=== PATIENT | female | born 1960 | race Hispanic/Latino ===

== ENCOUNTER 2017-06-19 15:29 | Emergency (ER) | payer SELFPAY | END 2017-06-19 17:06 | disposition home or self-care (01) | LOC: ERS 15:29 | DX: N63.20 Unspecified lump in the left breast, unspecified quadrant (principal); N63.32 Unspecified lump in axillary tail of the left breast; N64.4 Mastodynia; E03.9 Hypothyroidism, unspecified | CPT/HCPCS: 99283 ==

== ENCOUNTER 2017-08-06 12:25 | Outpatient (CLI) | payer OTHER, SELFPAY ==
[2017-08-06] MEDS ORDERED: ISOVUE-370 76%-LOCM 1 ML ONE (12:47)
== END 2017-08-06 12:26 | disposition home or self-care (01) ==
LOC: BICCT 12:25
PROVIDERS: ATTEND Internal Medicine Hematology & Oncology
DX: C50.412 Malignant neoplasm of upper-outer quadrant of left female breast (principal); K80.20 Calculus of gallbladder without cholecystitis without obstruction
CPT/HCPCS: 71260; 74177

== ENCOUNTER 2017-08-08 12:35 | Outpatient (CLI) | payer OTHER | END 2017-08-08 12:36 | disposition home or self-care (01) | LOC: ULT 12:35 | PROVIDERS: ATTEND Internal Medicine Hematology & Oncology | DX: Z51.11 Encounter for antineoplastic chemotherapy (principal); C50.919 Malignant neoplasm of unspecified site of unspecified female breast; I07.1 Rheumatic tricuspid insufficiency; I37.1 Nonrheumatic pulmonary valve insufficiency; Z79.899 Other long term (current) drug therapy | CPT/HCPCS: 93306 ==

== ENCOUNTER 2017-08-17 08:08 | Day surgery (SDC) | payer SELFPAY ==
[2017-08-14 12:32] VITALS: BMI 30.3
[2017-08-17] MEDS ORDERED: CEFAZOLIN/Water 2 GM/20 ML SYRINGE ONE (10:06)
[2017-08-17] MEDS ORDERED: Lidocaine 2% 10 ML INJ ONE (11:36)
[2017-08-17] MEDS ORDERED: Bupivacaine/Epinephrine 0.25% 30 ML VIAL ONE (11:36)
[2017-08-17] MEDS ORDERED: Propofol 500 MG/50 ML VIAL ONE (11:41)
[2017-08-17] MEDS ORDERED: Midazolam HCl 2 mg/2 ml Vial ONE (11:41)
[2017-08-17] MEDS ORDERED: Fentanyl 100 MCG/2 ML VIAL ONE (11:41)
--- NOTE | 2017-08-17 14:21 | RAD ---
ONE VIEW CHEST: History: Pre-operative exam. Breast cancer. FINDINGS: Portable upright chest radiograph demonstrates a right sided Mediport catheter with the distal tip pr ojecting over the superior vena cava. No pneumothorax. Patchy interstitial opacity in the lung parenc hyma which may represent chronic change. Infiltrate or atelectasis in the left lower lobe cannot be e xcluded. There is no osseous abnormality. IMPRESSION: Left lower lobe opacities as above. POS: SIMON
--- NOTE | 2017-08-17 15:18 | PDOC.OP ---
Operative Note - Operative Note Operative Note: PROCEDURE: Right subclavian MediPort placement with fluoroscopic guidance SURGEON: Dewayne Tejeda M.D. DATE OF PROCEDURE: 08/17/2017 PREOPERATIVE DIAGNOSIS: Breast cancer POSTOPERATIVE DIAGNOSIS: Breast cancer HISTORY: Patient is diagnosed with left breast cancer with severe axillary lymphadenopathy and lymphedema of the left arm. Chemotherapy has been recommended and the oncologist has requested MediPort placement for this. OPERATIVE PROCEDURE IN DETAIL: After informed consent was obtained and appropriate preoperative antibiotics were administered, the patient was taken to the operating room and placed in supine position and monitored anesthesia care was administered. The patient was then placed in Trendelenburg position and the subclavian vein accessed easily on the first attempt with excellent flow of dark venous non-pulsatile blood. A wire threaded easily and was confirmed to be in the superior vena cava by fluoroscopy. Additional local anesthesia was infused to the skin and subcutaneous tissues lateral and inferior to the access site. The skin incision was extended from the wire laterally and a subcutaneous pocket developed inferiorly. A Mediport was obtained and confirmed to fit in the subcutaneous pocket. This was secured inferiorly to the pectoralis fascia with a Prolene suture, which was clamped, but not tied. The dilator and sheath were then placed over the wire and the dilator and wire removed leaving the sheath in place. The clamped MediPort tubing was tunneled through the sheath, which was then split and removed leaving the MediPort tubing in place. The tubing was adjusted until the tip was confirmed by fluoroscopy to be in the superior vena cava just above the atrium. The tubing was clamped at the skin level and cut and the tubing secured to the port, which was then placed in the subcutaneous pocket. The previously placed suture was secured and two additional sutures were placed to fix the port in place within the pocket. The port was aspirated with the Plasencia needle and had excellent flow of dark venous non-pulsatile blood and easily flushed without resistance. The subcutaneous tissues were closed with a running Monocryl suture, following which the skin was closed with a running subcuticular Monocryl suture. Dermabond dressings were placed and the hub was again accessed through the skin and confirmed to easily aspirate and easily flush. The course of the catheter was confirmed by fluoroscopy to be smooth with the tip appropriately located in the superior vena cava. The patient was taken her back to the day stay unit in good condition. Estimated blood loss was minimal. There were no complications. There were no specimens.
== END 2017-08-17 15:00 | disposition home or self-care (01) ==
LOC: SDC 08:08
PROVIDERS: ATTEND Surgery
PROC: 0JH63WZ Insertion of Totally Implantable Vascular Access Device into Chest Subcutaneous Tissue and Fascia, Percutaneous Approach (ICD-10-PCS; principal; 2017-08-17)
DX: C50.919 Malignant neoplasm of unspecified site of unspecified female breast (principal)
CPT/HCPCS: 71045; C1788; J1642; J2250; J2704; J3010

== ENCOUNTER 2017-08-29 09:10 | Day surgery (SDC) | payer SELFPAY ==
[2017-08-29] MEDS ORDERED: Pegfilgrastim 6 MG/0.6 ML Delivery Kit SQ SCH (09:45)
[2017-08-29] MEDS ORDERED: Dexamethasone 10 MG/ML VIAL SLOW IVP SCH (09:45)
[2017-08-29] MEDS ORDERED: PALONOSETRON HCL 0.05 MG/ML 5 ML VIAL IVP SCH (09:45)
[2017-08-29 09:50] VITALS: BP 110/55; TEMP 98.9
[2017-08-29] MEDS ORDERED: DOXORUBICIN 100 MG in Sodium Chloride 0.9% 50 ML IVPB SCH (10:00)
[2017-08-29] MEDS ORDERED: Cyclophosphamide 1 GM in Sodium Chloride 0.9% 250 ML 250 ML IVPB SCH (10:00)
[2017-08-29] MEDS ORDERED: Sodium Chloride 0.9% 40 ML ONE (10:12)
== END 2017-08-29 13:45 | disposition home or self-care (01) ==
LOC: ONC/OP 09:10
PROVIDERS: ATTEND Internal Medicine Hematology & Oncology
DX: Z51.11 Encounter for antineoplastic chemotherapy (principal); C50.412 Malignant neoplasm of upper-outer quadrant of left female breast; E03.9 Hypothyroidism, unspecified; Z98.890 Other specified postprocedural states
CPT/HCPCS: 96366; 96375; 96377; 96413; 96417; A4216; J1100; J1453; J1642; J2469; J2505; J7050; J9000; J9070

== ENCOUNTER 2017-09-12 09:20 | Day surgery (SDC) | payer SELFPAY ==
[2017-09-12] MEDS ORDERED: Sodium Chloride 0.9% 20 ML ONE (09:31)
[2017-09-12] MEDS ORDERED: Pegfilgrastim 6 MG/0.6 ML Delivery Kit SQ SCH (09:45)
[2017-09-12] MEDS ORDERED: Cyclophosphamide 1 GM in Sodium Chloride 0.9% 250 ML 250 ML IVPB SCH (09:45)
[2017-09-12] MEDS ORDERED: DOXORUBICIN 100 MG in Sodium Chloride 0.9% 50 ML IVPB SCH (09:45)
[2017-09-12] MEDS ORDERED: Dexamethasone 10 MG/ML VIAL SLOW IVP SCH (09:45)
[2017-09-12] MEDS ORDERED: PALONOSETRON HCL 0.05 MG/ML 5 ML VIAL IVP SCH (09:45)
[2017-09-12 10:36] VITALS: BP 115/67; TEMP 98.6
== END 2017-09-12 12:52 | disposition home or self-care (01) ==
LOC: ONC/OP 09:20
PROVIDERS: ATTEND Internal Medicine Hematology & Oncology
DX: Z51.11 Encounter for antineoplastic chemotherapy (principal); C50.412 Malignant neoplasm of upper-outer quadrant of left female breast; E03.9 Hypothyroidism, unspecified
CPT/HCPCS: 96367; 96375; 96377; 96413; 96417; A4216; J1100; J1453; J1642; J2469; J2505; J7050; J9000; J9070

== ENCOUNTER 2017-09-26 08:49 | Day surgery (SDC) | payer SELFPAY ==
[2017-09-26] MEDS ORDERED: Sodium Chloride 0.9% 30 ML ONE (08:54)
[2017-09-26] MEDS ORDERED: Cyclophosphamide 1 GM in Sodium Chloride 0.9% 250 ML 250 ML IVPB SCH (09:15)
[2017-09-26] MEDS ORDERED: Dexamethasone 10 MG/ML VIAL SLOW IVP SCH (09:15)
[2017-09-26] MEDS ORDERED: PALONOSETRON HCL 0.05 MG/ML 5 ML VIAL IVP SCH (09:15)
[2017-09-26] MEDS ORDERED: DOXORUBICIN 100 MG in Sodium Chloride 0.9% 50 ML IVPB SCH (09:15)
[2017-09-26] MEDS ORDERED: Pegfilgrastim 6 MG/0.6 ML Delivery Kit SQ SCH (09:15)
[2017-09-26 09:23] VITALS: BP 119/60; TEMP 98.7
== END 2017-09-26 12:07 | disposition home or self-care (01) ==
LOC: ONC/OP 08:49
PROVIDERS: ATTEND Internal Medicine Hematology & Oncology
DX: Z51.11 Encounter for antineoplastic chemotherapy (principal); C50.412 Malignant neoplasm of upper-outer quadrant of left female breast; E03.9 Hypothyroidism, unspecified
CPT/HCPCS: 96367; 96375; 96377; 96413; 96417; A4216; J1100; J1453; J1642; J2469; J2505; J7050; J9000; J9070

== ENCOUNTER 2017-10-10 09:20 | Day surgery (SDC) | payer SELFPAY ==
[2017-10-10] MEDS ORDERED: DOXORUBICIN 100 MG in Sodium Chloride 0.9% 50 ML IVPB SCH (09:45)
[2017-10-10] MEDS ORDERED: Pegfilgrastim 6 MG/0.6 ML Delivery Kit SQ SCH (09:45)
[2017-10-10] MEDS ORDERED: Cyclophosphamide 1 GM in Sodium Chloride 0.9% 250 ML 250 ML IVPB SCH (09:45)
[2017-10-10] MEDS ORDERED: PALONOSETRON HCL 0.05 MG/ML 5 ML VIAL IVP SCH (09:45)
[2017-10-10] MEDS ORDERED: Dexamethasone 10 MG/ML VIAL SLOW IVP SCH (09:45)
[2017-10-10] MEDS ORDERED: Dexamethasone 4 mg/ml Vial SLOW IVP SCH (10:00)
[2017-10-10 11:25] VITALS: BP 124/60; TEMP 98.3
== END 2017-10-10 14:44 | disposition home or self-care (01) ==
LOC: ONC/OP 09:20
PROVIDERS: ATTEND Internal Medicine Hematology & Oncology
DX: Z51.11 Encounter for antineoplastic chemotherapy (principal); C50.412 Malignant neoplasm of upper-outer quadrant of left female breast; E03.9 Hypothyroidism, unspecified; Z79.899 Other long term (current) drug therapy
CPT/HCPCS: 96367; 96375; 96377; 96413; 96417; J1100; J1453; J2469; J2505; J7050; J9000; J9070

== ENCOUNTER 2017-10-31 13:38 | Day surgery (SDC) | payer SELFPAY ==
[2017-10-31] MEDS ORDERED: PACLitaxel 140 MG in Sodium Chloride 0.9% 250 ML 250 ML IVPB SCH (14:00)
[2017-10-31] MEDS ORDERED: Dexamethasone 10 MG, Admixture Fee 1 EACH in Sodium Chloride 0.9% 50 ML IVPB SCH (14:00)
[2017-10-31] MEDS ORDERED: Sodium Chloride 0.9% 30 ML ONE (15:28)
[2017-10-31 15:48] VITALS: BP 133/63; TEMP 98.1
== END 2017-10-31 16:33 | disposition home or self-care (01) ==
LOC: ONC/OP 13:38
PROVIDERS: ATTEND Internal Medicine Hematology & Oncology
DX: Z51.11 Encounter for antineoplastic chemotherapy (principal); C50.412 Malignant neoplasm of upper-outer quadrant of left female breast; E03.9 Hypothyroidism, unspecified; Z79.899 Other long term (current) drug therapy
CPT/HCPCS: 96375; 96413; A4216; J1100; J7050; J9267

== ENCOUNTER 2017-11-07 13:51 | Day surgery (SDC) | payer SELFPAY ==
[2017-11-07] MEDS ORDERED: Sodium Chloride 0.9% 20 ML ONE (14:01)
[2017-11-07] MEDS ORDERED: PACLitaxel 140 MG in Sodium Chloride 0.9% 250 ML 250 ML IVPB SCH (14:15)
[2017-11-07] MEDS ORDERED: Dexamethasone 10 MG in Sodium Chloride 0.9% 50 ML IVPB SCH (14:15)
[2017-11-07 14:19] VITALS: BP 122/60; TEMP 98.1
== END 2017-11-07 15:50 | disposition home or self-care (01) ==
LOC: ONC/OP 13:51
PROVIDERS: ATTEND Internal Medicine Hematology & Oncology
DX: Z51.11 Encounter for antineoplastic chemotherapy (principal); C50.412 Malignant neoplasm of upper-outer quadrant of left female breast; E03.9 Hypothyroidism, unspecified; Z17.1 Estrogen receptor negative status [ER-]
CPT/HCPCS: 96375; 96413; A4216; J1100; J1642; J7050; J9267

== ENCOUNTER 2017-11-14 13:50 | Day surgery (SDC) | payer SELFPAY ==
[2017-11-14] MEDS ORDERED: Sodium Chloride 0.9% 20 ML ONE (14:07)
[2017-11-14 14:21] VITALS: BP 111/55; TEMP 98.2
[2017-11-14] MEDS ORDERED: PACLitaxel 140 MG in Sodium Chloride 0.9% 250 ML 250 ML IVPB SCH (15:00)
== END 2017-11-14 16:38 | disposition home or self-care (01) ==
LOC: ONC/OP 13:50
PROVIDERS: ATTEND Internal Medicine Hematology & Oncology
DX: Z51.11 Encounter for antineoplastic chemotherapy (principal); C50.412 Malignant neoplasm of upper-outer quadrant of left female breast; E03.9 Hypothyroidism, unspecified; Z79.899 Other long term (current) drug therapy
CPT/HCPCS: 96375; 96413; A4216; J1642; J7050; J9267

== ENCOUNTER 2017-11-21 13:34 | Day surgery (SDC) | payer OTHER, SELFPAY ==
[2017-11-21] MEDS ORDERED: Sodium Chloride 0.9% 30 ML ONE (13:58)
[2017-11-21] MEDS ORDERED: Dexamethasone Sod Phosphate 4 MG in Sodium Chloride 0.9% 50 ML IVPB SCH (14:15)
[2017-11-21 14:23] VITALS: BP 123/67; TEMP 98.6
[2017-11-21] MEDS ORDERED: PACLitaxel 140 MG in Sodium Chloride 0.9% 250 ML 250 ML IVPB SCH (14:45)
[2017-11-21] MEDS ORDERED: Dexamethasone 4 MG in Sodium Chloride 0.9% 50 ML SLOW IVP SCH (14:45)
== END 2017-11-21 16:06 | disposition home or self-care (01) ==
LOC: ONC/OP 13:34
PROVIDERS: ATTEND Internal Medicine Hematology & Oncology
DX: Z51.11 Encounter for antineoplastic chemotherapy (principal); C50.412 Malignant neoplasm of upper-outer quadrant of left female breast; E03.9 Hypothyroidism, unspecified; Z79.899 Other long term (current) drug therapy
CPT/HCPCS: 96375; 96413; A4216; J1100; J1642; J7050; J9267

== ENCOUNTER 2017-11-28 13:25 | Day surgery (SDC) | payer SELFPAY ==
[2017-11-28] MEDS ORDERED: Sodium Chloride 0.9% 20 ML ONE (13:29)
[2017-11-28 13:37] VITALS: BP 119/56; TEMP 97.9
[2017-11-28] MEDS ORDERED: Dexamethasone 4 mg/ml Vial SLOW IVP SCH (13:45)
[2017-11-28] MEDS ORDERED: PACLitaxel 140 MG in Sodium Chloride 0.9% 250 ML 250 ML IVPB SCH (14:00)
== END 2017-11-28 16:22 | disposition home or self-care (01) ==
LOC: ONC/OP 13:25
PROVIDERS: ATTEND Internal Medicine Hematology & Oncology
DX: Z51.11 Encounter for antineoplastic chemotherapy (principal); C50.412 Malignant neoplasm of upper-outer quadrant of left female breast; E03.9 Hypothyroidism, unspecified; Z79.899 Other long term (current) drug therapy
CPT/HCPCS: 96375; 96413; J1100; J1642; J7050; J9267

== ENCOUNTER 2017-12-05 13:35 | Day surgery (SDC) | payer OTHER ==
[2017-12-05] MEDS ORDERED: Sodium Chloride 0.9% 30 ML ONE (13:44)
[2017-12-05] MEDS ORDERED: PACLitaxel 140 MG in Sodium Chloride 0.9% 250 ML 250 ML IVPB SCH (13:45)
[2017-12-05] MEDS ORDERED: Dexamethasone 4 mg/ml Vial SLOW IVP SCH (13:45)
[2017-12-05 14:27] VITALS: BP 113/68; TEMP 98.6
== END 2017-12-05 16:20 | disposition home or self-care (01) ==
LOC: ONC/OP 13:35
PROVIDERS: ATTEND Internal Medicine Hematology & Oncology
DX: Z51.11 Encounter for antineoplastic chemotherapy (principal); C50.412 Malignant neoplasm of upper-outer quadrant of left female breast; E03.9 Hypothyroidism, unspecified; Z79.899 Other long term (current) drug therapy
CPT/HCPCS: 96375; 96413; J1100; J1642; J7050; J9267

== ENCOUNTER → 2017-12-12 | Day surgery (SDC) | payer OTHER ==
[~2017-12-12] MED LIST: Dexamethasone 4 mg/ml Vial SLOW IVP SCH; PACLitaxel 140 MG in Sodium Chloride 0.9% 250 ML 250 ML IVPB SCH; Sodium Chloride 0.9% 20 ML ONE
[2017-12-12 14:58] VITALS: BP 127/60; TEMP 98.7
--- NOTE | 2017-12-12 16:48 | ULT ---
LEFT LOWER EXTREMITY VENOUS DUPLEX ULTRASOUND INCLUDING COLOR AND SPECTRAL DOPPLER IMAGING: Date: 12/12/17 HISTORY: 57-year-old female with history of malignant neoplasm of upper outer quadrant of left female breast. TECHNIQUE: Exam performed from groin to ankle including visualized greater saphenous, common femoral, superficia l femoral, profunda femoral, popliteal, trifurcation, and posterior tibial vein. FINDINGS: Phasic flow noted at all levels with normal compressibility and normal augmentation. No intraluminal thrombus. IMPRESSION: No evidence for deep venous thrombosis. POS: TPC
== END ==
LOC: ONC/OP 12:52
PROVIDERS: ATTEND Internal Medicine Hematology & Oncology
DX: Z51.11 Encounter for antineoplastic chemotherapy (principal); C50.412 Malignant neoplasm of upper-outer quadrant of left female breast; E03.9 Hypothyroidism, unspecified
CPT/HCPCS: 90471; 96375; 96413; J1100; J1642; J7050; J9267

== ENCOUNTER 2017-12-19 12:06 | Day surgery (SDC) | payer OTHER ==
[2017-12-19] MEDS ORDERED: Dexamethasone 4 mg/ml Vial SLOW IVP SCH (12:15)
[2017-12-19] MEDS ORDERED: Sodium Chloride 0.9% 20 ML ONE (12:19)
[2017-12-19] MEDS ORDERED: PACLitaxel 140 MG in Sodium Chloride 0.9% 250 ML 250 ML IVPB SCH (12:30)
[2017-12-19 12:36] VITALS: BP 114/57; TEMP 98.7
== END 2017-12-19 14:13 | disposition home or self-care (01) ==
LOC: ONC/OP 12:06
PROVIDERS: ATTEND Internal Medicine Hematology & Oncology
DX: Z51.11 Encounter for antineoplastic chemotherapy (principal); C50.412 Malignant neoplasm of upper-outer quadrant of left female breast
CPT/HCPCS: 96375; 96413; J1100; J1642; J7050; J9267

== ENCOUNTER 2017-12-26 11:38 | Day surgery (SDC) | payer OTHER ==
[2017-12-26] MEDS ORDERED: Sodium Chloride 0.9% 20 ML ONE (11:47)
[2017-12-26] MEDS ORDERED: Dexamethasone 4 mg/ml Vial SLOW IVP SCH (12:00)
[2017-12-26] MEDS ORDERED: PACLitaxel 140 MG in Sodium Chloride 0.9% 250 ML 250 ML IVPB SCH (12:00)
[2017-12-26 13:13] VITALS: BP 125/58; TEMP 98.2
== END 2017-12-26 13:45 | disposition home or self-care (01) ==
LOC: ONC/OP 11:38
PROVIDERS: ATTEND Internal Medicine Hematology & Oncology
DX: Z51.11 Encounter for antineoplastic chemotherapy (principal); C50.412 Malignant neoplasm of upper-outer quadrant of left female breast; E03.9 Hypothyroidism, unspecified; Z79.899 Other long term (current) drug therapy
CPT/HCPCS: 96375; 96413; J1100; J1642; J7050; J9267

== ENCOUNTER 2018-01-02 12:25 | Day surgery (SDC) | payer SELFPAY, OTHER ==
[2018-01-02] MEDS ORDERED: PACLitaxel 140 MG in Sodium Chloride 0.9% 250 ML 250 ML IVPB SCH (12:45)
[2018-01-02] MEDS ORDERED: Dexamethasone 4 mg/ml Vial SLOW IVP SCH (12:45)
[2018-01-02] MEDS ORDERED: Sodium Chloride 0.9% 30 ML ONE (12:56)
[2018-01-02 13:12] VITALS: BP 129/61; TEMP 98
== END 2018-01-02 15:20 | disposition home or self-care (01) ==
LOC: ONC/OP 12:25
PROVIDERS: ATTEND Internal Medicine Hematology & Oncology
DX: Z51.11 Encounter for antineoplastic chemotherapy (principal); C50.412 Malignant neoplasm of upper-outer quadrant of left female breast; E03.9 Hypothyroidism, unspecified; Z79.899 Other long term (current) drug therapy
CPT/HCPCS: 96375; 96413; J1100; J1642; J7050; J9267

== ENCOUNTER 2018-01-09 14:24 | Day surgery (SDC) | payer OTHER ==
[2018-01-09] MEDS ORDERED: PACLitaxel 140 MG in Sodium Chloride 0.9% 250 ML 250 ML IVPB SCH (14:45)
[2018-01-09] MEDS ORDERED: Dexamethasone 4 mg/ml Vial SLOW IVP SCH (14:45)
[2018-01-09] MEDS ORDERED: Sodium Chloride 0.9% 20 ML ONE (15:04)
== END 2018-01-09 17:40 | disposition home or self-care (01) ==
LOC: ONC/OP 14:24
PROVIDERS: ATTEND Internal Medicine Hematology & Oncology
DX: Z51.11 Encounter for antineoplastic chemotherapy (principal); C50.412 Malignant neoplasm of upper-outer quadrant of left female breast; E03.9 Hypothyroidism, unspecified
CPT/HCPCS: 96375; 96413; J1100; J1642; J7050; J9267

== ENCOUNTER 2018-01-16 12:19 | Day surgery (SDC) | payer OTHER ==
[2018-01-16] MEDS ORDERED: Sodium Chloride 0.9% 30 ML ONE (12:27)
[2018-01-16] MEDS ORDERED: PACLitaxel 140 MG in Sodium Chloride 0.9% 250 ML 250 ML IVPB SCH (12:45)
[2018-01-16] MEDS ORDERED: Dexamethasone 4 MG in Sodium Chloride 0.9% 50 ML IVPB SCH (12:45)
[2018-01-16 13:08] VITALS: BP 127/58; TEMP 99.2
== END 2018-01-16 15:28 | disposition home or self-care (01) ==
LOC: ONC/OP 12:19
PROVIDERS: ATTEND Internal Medicine Hematology & Oncology
DX: Z51.11 Encounter for antineoplastic chemotherapy (principal); C50.412 Malignant neoplasm of upper-outer quadrant of left female breast; E03.9 Hypothyroidism, unspecified; Z17.1 Estrogen receptor negative status [ER-]
CPT/HCPCS: 96375; 96413; J1100; J1642; J7050; J9267

== ENCOUNTER 2018-01-28 10:51 | Observation (INO) | payer SELFPAY ==
[2018-01-28 12:17] LABS: Hemoglobin 12.7 g/dL (12.0-16.0); Mean Corpuscular HGB CONC 33.1 g/dL (32.0-36.0); Mean Corpuscular Volume 96.5 fL (78.0-98.0); Mean Platelet Volume 6.2 fL (7.4-10.4); Platelet Count 291 thou/uL (130-400); RBC Distribution Width 12.2 % (11.5-14.5); Red Blood Cell (RBC) Count 3.96 mill/uL (4.20-5.40); White Blood Cell (WBC) Count 3.4 thou/uL (4.8-10.8)
[2018-01-28 12:41] LABS: Band 5 % (5-11); Lymphocytes 43 % (21-51); MDiff Complete? YES; Monocytes 12 % (0-10); Neutrophil 38 % (42-75); PLT Morphology Comment Appears Adequate; Reactive Lymphocytes 2 % (0-10)
[2018-01-28 12:45] LABS: Anion Gap 14 mmol/L (10-20); BUN (Urea Nitrogen) 13 mg/dL (9.8-20.1); Calc. Creatinine Clearance 98 mL/min (70-130); Calcium 9.5 mg/dL (7.8-10.44); Carbon Dioxide 24 mmol/L (22-29); Chloride 108 mmol/L (98-107); Estimated GFR-MDRD 75; Glucose 94 mg/dL (70-105); Potassium 4.5 mmol/L (3.5-5.1); Sodium 141 mmol/L (136-145)
[2018-01-28] MEDS ORDERED: CEFAZOLIN 2 GM/50 ML BAG ONE (12:58)
[2018-01-28] MEDS ORDERED: HYDROmorphone 2 MG/ML VIAL ONE ×2 (13:58→14:33)
[2018-01-28] MEDS ORDERED: Fentanyl 100 MCG/2 ML VIAL ONE ×2 (13:58→20:06)
[2018-01-28] MEDS ORDERED: Promethazine HCl 25 MG/ML VIAL SLOW IVP PRN (19:20)
[2018-01-28] MEDS ORDERED: HYDROmorphone 2 MG/ML VIAL SLOW IVP PRN (19:20)
[2018-01-28] MEDS ORDERED: Promethazine HCl 25 MG/ML VIAL IM PRN (19:20)
[2018-01-28] MEDS ORDERED: Ondansetron HCl/PF 4 MG/2 ML Vial IVP PRN (19:20)
[2018-01-28] MEDS ORDERED: HYDROcodone/Acetaminophen 5/325 mg Tablet PO PRN ×2 (19:59)
[2018-01-28] MEDS ORDERED: Acetaminophen 325 MG TAB PO PRN ×2 (20:00)
[2018-01-28] MEDS ORDERED: Ibuprofen 600 MG TAB PO PRN (20:02)
[2018-01-28] MEDS ORDERED: traMADol HCl 50 MG TAB PO PRN ×2 (20:03→20:04)
[2018-01-28] MEDS ORDERED: PROPOFOL 200 MG/20 ML VIAL ONE (20:05)
[2018-01-28] MEDS ORDERED: Dexamethasone 20 MG/5 ML VIAL ONE (20:05)
[2018-01-28] MEDS ORDERED: Ondansetron PF 4 MG/2 ML Vial ONE (20:05)
[2018-01-28] MEDS ORDERED: Ketorolac Tromethamine 30 MG/ML VIAL ONE (20:05)
[2018-01-28] MEDS ORDERED: Metoclopramide HCl 10 MG/2 ML VIAL ONE (20:05)
[2018-01-28] MEDS ORDERED: Glycopyrrolate 0.2 MG/ML 5 ML SYRINGE ONE (20:05)
[2018-01-28] MEDS ORDERED: ePHEDrine/0.9% NaCl/PF SYRINGE 50 mg/10 ml ONE (20:05)
[2018-01-28] MEDS ORDERED: Lidocaine 1% PF 5 ML VIAL ONE (20:05)
[2018-01-29 08:39] VITALS: BP 98/60; TEMP 98.5
--- NOTE | 2018-02-01 13:28 | PDOC.OP ---
Operative Note - Operative Note Operative Note: PROCEDURE: Right simple mastectomy and left modified radical mastectomy DATE OF PROCEDURE: 01/28/2018 SURGEON: Dewayne Tejeda M.D. PREOPERATIVE DIAGNOSES: Left breast cancer POSTOPERATIVE DIAGNOSIS: Left breast cancer HISTORY: Patient with locally advanced left breast cancer with involvement of multiple axillary lymph nodes has undergone neoadjuvant chemotherapy with partial response. She has decided to proceed with bilateral mastectomy. She still has palpable axillary lymph nodes so left modified radical mastectomy was recommended. She also has palpable supraclavicular lymph nodes but only one of these a surgically accessible so after discussion with her oncologist the decision was made not to address this surgically. It will be in the postoperative radiation therapy field. PROCEDURE IN DETAIL: After informed consent was obtained and preoperative antibiotics administered, the patient was taken to the operating room she was placed in supine position and general anesthesia was administered. The patient was then prepped and draped in the standard sterile fashion and right simple mastectomy performed. An elliptical incision including the nipple areolar complex was created and flaps raised superiorly to the level of the clavicle, inferiorly to the level of the rectus sheath and medially to the level of the sternum. The breast tissue was then dissected free of the pectoralis in a medial to lateral fashion and marked for orientation with a long lateral and short superior suture. The wound was irrigated and hemostasis obtained using Bovie electrocautery. A GISELLA drain was placed laterally and secured to the skin. The subcutaneous tissues and deep dermis were reapproximated with interrupted [id number] Vicryl sutures and the skin was closed with skin la. Attention was then turned to the left modified radical mastectomy. A transverse elliptical incision was made and flaps created by dividing Jarek s ligaments. Dissection was carried down to the rectus sheath inferiorly, the sternal edge medially, and the clavicle superiorly. The breast tissue and pectoralis fascia were then elevated and dissected free laterally to the edge of the pectoralis muscle. This was done with moderate difficulty as there appeared to be a large amount of fibrosis between the pectoralis fascia and the pectoralis. However there was no direct extension of the tumor into the pectoralis. The true axilla was entered superiorly and dissection carried down to the axillary vein. The axillary contents were then swept off of the chest wall and the long thoracic nerve identified and confirmed to cause contraction of the muscles. Dissection in this area was also difficult because of fibrosis of unclear etiology. Multiple intercostal brachial nerves were divided as they were coursing directly through the breast tissue. The thoracodorsal vein and nerve were identified coming off of the axillary vein laterally and traced to their insertion in the latissimus dorsi. The nerve was confirmed to cause contraction of this muscle. The lymph node bearing tissue between these 3 structures was then resected in continuity with the breast tissue using clips to divide small lymphatics and vessels. Multiple enlarged lymph nodes were palpable within the axillary contents, and dissection was carried out all the way to the level III lymph nodes medial to the pectoralis minor muscle. The specimen was marked with a long lateral and short superior suture and passed from the field. The wound was irrigated and hemostasis verified. On palpation and examination of the axilla, no other abnormal lymph nodes were noted except for one palpable firm lymph node or mass which appeared to be fixed deep and superior to the medial edge of the pectoralis minor. It was felt that this likely represented one of the supraclavicular lymph nodes which have been noted adjacent to the subclavian vein on ultrasound preoperatively. This was not accessible surgically. Two GISELLA drains were placed to the chest wall and to the axilla and secured to the skin. The incision was closed with deep dermal 3-0 Vicryl sutures and the skin closed with la. The incision was dressed with Xeroform and Tegaderm and the GISELLA sites dressed with drain sponges and Tegaderm. Compression dressings and an Khadar wrap were placed. Estimated blood loss was minimal. There were no complications. SPECIMENS: Right breast, and left breast and axillary contents.
== END 2018-01-29 11:26 | disposition home or self-care (01) ==
LOC: SDC 10:51 → SURG A 19:52
PROVIDERS: ADMIT Surgery; ATTEND Surgery
PROC: 0HTT0ZZ Resection of Right Breast, Open Approach (ICD-10-PCS; principal; 2018-01-28)
PROC: 0HBU0ZZ Excision of Left Breast, Open Approach (ICD-10-PCS; 2018-01-28)
DX: C50.912 Malignant neoplasm of unspecified site of left female breast (principal); N60.11 Diffuse cystic mastopathy of right breast; F41.9 Anxiety disorder, unspecified; Z98.890 Other specified postprocedural states
CPT/HCPCS: 36415; 80048; 85025; 88307; 88309; 96374; G0378; J1100; J1170; J1885; J2001; J2405; J2704; J2765; J3010

== ENCOUNTER 2018-02-16 11:24 | Inpatient (IN) | payer OTHER, SELFPAY ==
[2018-02-16 12:15] LABS: #Eosinphils 0.1 thou/uL (0.0-0.7); #Lymphocytes 0.7 thou/uL (1.20-3.40); #Monocytes 0.7 thou/uL (0.11-0.59); #Neutrophils 6.8 thou/uL (1.40-6.50); %Eosinophils 0.8 % (0.0-10.0); %Lymphocytes 8.7 % (21.0-51.0); %Neutrophils 82.6 % (42.0-75.0); Hemoglobin 12.3 g/dL (12.0-16.0); Mean Corpuscular HGB CONC 34.1 g/dL (32.0-36.0); Mean Corpuscular Hemoglobin 32.6 pg (27.0-31.0); Mean Corpuscular Volume 95.8 fL (78.0-98.0); Mean Platelet Volume 7.1 fL (7.4-10.4); Platelet Count 355 thou/uL (130-400); RBC Distribution Width 12.9 % (11.5-14.5); Red Blood Cell (RBC) Count 3.76 mill/uL (4.20-5.40); White Blood Cell (WBC) Count 8.3 thou/uL (4.8-10.8)
[2018-02-16 12:27] LABS: ALT (SGPT) 20 U/L (8-55); AST (SGOT) 23 U/L (5-34); Albumin 3.7 g/dL (3.5-5.0); Alkaline Phosphatase 100 U/L (40-150); Anion Gap 20 mmol/L (10-20); BUN (Urea Nitrogen) 11 mg/dL (9.8-20.1); Bilirubin, Total 0.3 mg/dL (0.2-1.2); Calc. Creatinine Clearance 0 mL/min (70-130); Calcium 9.5 mg/dL (7.8-10.44); Carbon Dioxide 16 mmol/L (22-29); Chloride 99 mmol/L (98-107); Estimated GFR-MDRD 64; Globulin 4.2 g/dL (2.4-3.5); Glucose 141 mg/dL (70-105); Potassium 4.4 mmol/L (3.5-5.1); Protein, Total 7.9 g/dL (6.0-8.3); Sodium 131 mmol/L (136-145)
[2018-02-16] MEDS ORDERED: Ondansetron PF 4 MG/2 ML Vial ONE (14:47)
[2018-02-16] MEDS ORDERED: Morphine 4 MG/ML VIAL ONE (14:47)
[2018-02-16 15:29] LABS: Bilirubin Small (Negative); Blood, Urine Trace (Negative); Clarity CLEAR (Clear); Glucose, Urine (Dipstick) Negative (Negative); Leukocyte Small (Negative); Nitrite Negative (Negative); Protein, Urine (Dipstick) Negative (Neg-Trace); Specific Gravity, Urine 1.029 (1.002-1.036)
[2018-02-16 15:31] LABS: Bacteria/HPF None Seen HPF (None Seen); Hyaline Casts/LPF 0-3 HYALINE CAST LPF (0-3 Hyaline); Pathc Cast-AUWi Flag 0.29 (0-2.49)
[2018-02-16 15:53] LABS: Lactic Acid 1.3 mmol/L (0.5-2.2)
--- NOTE | 2018-02-16 15:57 | RAD ---
CHEST ONE VIEW: 02/16/18 HISTORY: Sepsis. COMPARISON: Chest radiograph 08/17/17. FINDINGS: There is small left effusion. Mild left basilar atelectasis. Multiple surgical clips left axilla. At the inferior margin of the left axillary clips, there is what appears to be a surgical wick drain. IMPRESSION: 1. Left basilar opacity, likely atelectasis with a small effusion. 2. At the inferior margin of the left axillary surgical clips is what appears to be a surgical w ick type drain. Clinical correlation is advised. POS: SIMON
[2018-02-16] MEDS ORDERED: Piperacillin/Tazobactam 4.5 GM VIAL ONE (16:01)
[2018-02-16] MEDS ORDERED: Clindamycin/D5W 900 mg/50 ml Premix Bag ONE (16:41)
[2018-02-16] MEDS ORDERED: Iopamidol 370 76% 100 ML VIAL ONE (17:09)
[2018-02-16] MEDS ORDERED: Vancomycin HCl 1 GM in Premix Bag 1 BAG IVPB SCH (18:15)
--- NOTE | 2018-02-16 20:25 | CT ---
CTA CHEST WITH CONTRAST AND 3D VOLUME RENDERING 02/16/18 INDICATION: History of wound infection. Recent bilateral mastectomy, fever. FINDINGS: No evidence of a significant filling defect of the pulmonary trunk or main pulmonary arteries. There is bilateral multifocal parenchymal consolidation containing air bronchograms. There is mild left ple ural fluid. No pneumothorax. There is heterogeneous density of the ventral chest wall bilaterally wi th skin thickening, increased subcutaneous density and several scattered locules of dermal air. Thora cic aorta is nonaneurysmal. Multiple metallic clips are present of the left axilla and along the left chest wall, laterally. IMPRESSION: 1. No large, central pulmonary embolus. 2. Multifocal bilateral consolidation with air bronchograms indicative of pneumonia. 3. Mild left pleural effusion. 4. Heterogeneous density of the ventral chest wall with interspersed air locules. The patient kendrick s a reported recent mastectomy. This may therefore relate to postsurgical changes. Although clinical correlation is necessary to exclude superimposed infection. POS: SIMON
[2018-02-16 20:46] LABS: CK (CPK) 38 U/L (29-168); Lipase 14 U/L (8-78)
[2018-02-16 20:50] LABS: CKMB 0.9 ng/mL (0-6.6)
[2018-02-16] MEDS ORDERED: Acetaminophen 500 MG TAB ONE (21:30)
[2018-02-16] MEDS ORDERED: Norepinephrine 8 MG/0.9% NS 250 ML ONE (23:31)
[2018-02-17] MEDS ORDERED: Guaifenesin DM 100-10/5 ML UDCUP PO PRN (01:31)
[2018-02-17] MEDS ORDERED: Senokot S 8.6-50 MG TAB PO PRN (01:31)
[2018-02-17] MEDS ORDERED: Norepinephrine 8 MG/0.9% NS 250 ML IVPB PRN (01:31)
[2018-02-17] MEDS ORDERED: Sodium Chloride 0.9% 1,000 ML IV SCH (01:31)
[2018-02-17] MEDS ORDERED: Acetaminophen 325 MG TAB PO PRN (01:31)
[2018-02-17 02:15] LABS: #Basophils 0.1 thou/uL (0.0-0.2); #Eosinphils 0.1 thou/uL (0.0-0.7); #Lymphocytes 1.3 thou/uL (1.20-3.40); #Monocytes 0.8 thou/uL (0.11-0.59); #Neutrophils 4.3 thou/uL (1.40-6.50); %Basophils 0.8 % (0.0-1.0); %Eosinophils 0.8 % (0.0-10.0); %Lymphocytes 19.6 % (21.0-51.0); %Neutrophils 66.7 % (42.0-75.0); Hemoglobin 9.8 g/dL (12.0-16.0); Mean Corpuscular HGB CONC 34.4 g/dL (32.0-36.0); Mean Corpuscular Hemoglobin 33.1 pg (27.0-31.0); Mean Corpuscular Volume 96.2 fL (78.0-98.0); Mean Platelet Volume 6.5 fL (7.4-10.4); Platelet Count 317 thou/uL (130-400); RBC Distribution Width 12.8 % (11.5-14.5); Red Blood Cell (RBC) Count 2.95 mill/uL (4.20-5.40); White Blood Cell (WBC) Count 6.4 thou/uL (4.8-10.8)
[2018-02-17] MEDS ORDERED: Piperacillin/Tazobactam 4.5 GM VIAL ONE (02:18)
--- NOTE | 2018-02-17 02:30 | HP ---
REASON FOR ADMISSION: Septic shock, post mastectomy wound site infection, possible pneumonia, demand ischemia, and metabolic acidosis. HISTORY OF PRESENTING ILLNESS: The patient has history of breast cancer and had bilateral mastectomy done. She in fact had left breast modified radical mastectomy with histopathology revealing invasive ductal carcinoma, triple negative for markers. She also had 12/16 lymph nodes being positive. She had her la removed on . She had a followup on 02/13 with her surgeon and had a left tube drain placed. She went again on the and saw Dr. Tejeda. The left drainage tube was kinked and she had to cut it short and dressing changes were made. This morning, the patient had drainage seen on the right side, which was yellowish, watery drainage. She tried calling the surgical hotline, but could not reach anyone at the other end. She finally made it to the emergency room. She has had a temperature of 99.8 degrees at home and 99.6 degrees here. No cough or expectoration. No urinary frequency or urgency. The patient had chemotherapy given on the to shrink her left breast mass and had surgery on 01/28. PAST MEDICAL HISTORY: Hypothyroidism; left breast invasive ductal carcinoma, which is triple negative and has 12/16 positive lymph nodes. She had simple mastectomy of the right breast as well. CURRENT MEDICATIONS: The patient was started on Bactrim and Cipro from last 2 days, ultram p.r.n. for pain. ALLERGIES: NO KNOWN DRUG ALLERGIES. PERSONAL HISTORY: Does not abuse alcohol or drugs. No history of smoking. She lives with her for 2 years. FAMILY HISTORY: Mother at the age of 35 years due to delivery complications. Father in his 70s, he has had history of OR. Two sisters have had history of ovarian cancer and one from it. The other two sisters are healthy. She has no brothers. The patient ambulates by herself without any assistive devices. Code status is full. Power of paperhanger is her . REVIEW OF SYSTEMS: CONSTITUTIONAL: Negative for weight loss or gain, ability to conduct usual activities. SKIN: Negative for rash, itching. EYES: Negative for double vision, pain. ENT/MOUTH: Negative for nose bleeding, neck stiffness, pain, tenderness. CARDIOVASCULAR: Negative for palpitations, dyspnea on exertion, orthopnea. RESPIRATORY: Negative for shortness of breath, wheezing, cough, hemoptysis, fever or night sweats. GASTROINTESTINAL: Negative for poor appetite, abdominal pain, heartburn, nausea , vomiting, constipation, or diarrhea. GENITOURINARY: Negative for urgency, frequency, dysuria, nocturia. MUSCULOSKELETAL: Negative for pain, swelling. NEUROLOGIC/PSYCHIATRIC: Negative for anxiety, depression. ALLERGY/IMMUNOLOGIC: Negative for skin rash, bleeding tendency. PHYSICAL EXAMINATION: GENERAL: The patient is a 57-year-old female who is currently not in any acute distress. VITAL SIGNS: On arrival, blood pressure 110/45, dropped down to the 70s systolic and had to be given 2 L bolus. This came up to 100 systolic, but then again dropped and had to be started on Levophed drip. Respiratory rate 16, pulse 106 per minute, temperature 99.6 degrees Fahrenheit, and saturating 98% on room air. NECK: Supple. No elevated JVD. HEENT: Eyes, extraocular muscles intact. Pupils reacting to light. Oral cavity, mucous membranes are dry. No exudates or congestion. CARDIOVASCULAR SYSTEM: S1 and S2 heard. Regular rhythm. RESPIRATORY SYSTEM: Air entry 1+ bilateral. No rales or rhonchi. ABDOMEN: Soft. Bowel sounds heard. No tenderness, rigidity, or guarding. EXTREMITIES: Mild peripheral edema in the lower extremities and no calf tenderness. VASCULAR SYSTEM: 1+ bilateral. No ischemic ulcerations or gangrene. CENTRAL NERVOUS SYSTEM: No gross focal deficits noted. The patient is alert, awake, and oriented well. PSYCHIATRIC SYSTEM: The patient's mood is euthymic. No hallucinations or delusions. BREAST EXAMINATION: In the right breast, there is serosanguineous discharge with some purulence seen in the right mastectomy surgical site. The patient has drainage in the left breast mastectomy site as well. This is covered in a dressing, which is not open at present. Cultures have been obtained from the site. LABORATORY DATA: CT angio chest done showed no large central pulmonary embolus. There is multifocal pneumonia, mild left pleural effusion. White count of 8.3, hemoglobin and hematocrit 12 and 36, platelet count 355 with 82% neutrophils, MCV is 95. Sodium 131, serum bicarb 16, BUN 11, creatinine 0.9, serum glucose 141, and lactic acid 2.4. Liver enzymes are within normal limits. Albumin is 3.7. BNP 70. Troponin I 0.03, CK-MB 0.9. UA shows small leukocyte esterase with 4 to 6 wbc's with no bacteria seen. Preliminary Gram stain from right breast shows few gram positive cocci in clusters, moderate WBC seen. EKG done shows normal sinus rhythm at 86 beats per minute. There are nonspecific ST-T wave changes, questionable Q-wave seen in lead III, aVF. CLINICAL IMPRESSION AND PLAN: The patient will be admitted to ICU for septic shock, likely post mastectomy site infection. Blood and wound cultures have been obtained. We will obtain sputum and urine cultures as well. She will be placed on broad-spectrum antibiotics including cefepime, Levaquin, and vancomycin. This can be rapidly tapered based on cultures. She has received only 2 L of bolus in the ER and will give two more L of bolus and she will be on lactated Ringer's 100 mL per hour thereafter. If needed, we will use Levophed. A cortisol level stat will be obtained. We will consult Dr. Tejeda for General Surgery and Dr. Segura for Critical Care. If the patient's systolic blood pressure holds good and is not needing pressors, she will be transferred down to telemetry or oncology unit. We will continue to closely monitor her. The patient's breast cancer is triple negative (estrogen, progesterone, and HER2/jerrod all three of them are negative plus the patient has 12/15 lymph nodes being positive). Job ID: [id number] [facility]
[2018-02-17] MEDS ORDERED: Cefepime 1 GM in Sodium Chloride 0.9% 100 ML IVPB SCH (03:00)
[2018-02-17 03:03] LABS: ALT (SGPT) 14 U/L (8-55); AST (SGOT) 14 U/L (5-34); Albumin 2.8 g/dL (3.5-5.0); Alkaline Phosphatase 82 U/L (40-150); Anion Gap 11 mmol/L (10-20); BUN (Urea Nitrogen) 8 mg/dL (9.8-20.1); Bilirubin, Total Less than 0.2 mg/dL (0.2-1.2); CRP (Inflammatory) 11.28 mg/dL (= or < 0.5); Calc. Creatinine Clearance 0 mL/min (70-130); Calcium 8.3 mg/dL (7.8-10.44); Carbon Dioxide 20 mmol/L (22-29); Chloride 112 mmol/L (98-107); Estimated GFR-MDRD 82; Glucose 97 mg/dL (70-105); Potassium 3.7 mmol/L (3.5-5.1); Protein, Total 5.8 g/dL (6.0-8.3); Sodium 139 mmol/L (136-145)
[2018-02-17 03:17] VITALS: BMI 31.1
[2018-02-17] MEDS: Cefepime 1 GM in Sodium Chloride 0.9% 100 ML IVPB SCH ×2 (04:00→15:49)
[2018-02-17 06:37] LABS: Bilirubin Negative (Negative); Blood, Urine Trace (Negative); Clarity CLEAR (Clear); Glucose, Urine (Dipstick) Negative (Negative); Leukocyte Trace (Negative); Nitrite Negative (Negative); Protein, Urine (Dipstick) Negative (Neg-Trace); Specific Gravity, Urine 1.007 (1.002-1.036); Urobilinogen 0.2 mg/dL (0.2-1.0)
[2018-02-17 06:40] LABS: Bacteria/HPF None Seen HPF (None Seen); Hyaline Casts/LPF 0-3 HYALINE CAST LPF (0-3 Hyaline); RBC/HPF 0-3 HPF (0-3); Squamous Epithelial 0-3 HPF (0-3); WBC/HPF 0-3 HPF (0-3)
[2018-02-17] MEDS: Enoxaparin Sodium 40 MG/0.4 ML SYRINGE SC SCH (08:09)
[2018-02-17] MEDS: Vancomycin HCl 750 MG in Sodium Chloride 0.9% 250 ML 250 ML IVPB SCH ×2 (08:09→21:01)
[2018-02-17] MEDS: Famotidine 20 MG TAB PO SCH ×2 (08:09→21:02)
[2018-02-17] MEDS ORDERED: Prevnar 13-Val Conj/PF 0.5 ML SYRINGE IM ONE (09:00)
[2018-02-17] MEDS ORDERED: Vancomycin HCl 1 GM in Sodium Chloride 0.9% 250 ML 250 ML IVPB SCH (09:00)
--- NOTE | 2018-02-17 09:21 | CON ---
DATE OF CONSULTATION: 02/17/2018 REASON FOR CONSULTATION: Sepsis/septic shock. HISTORY OF THE PRESENT ILLNESS: She is a 57-year-old female, who underwent mastectomy about 4 weeks ago. She has developed pus-like drainage in her left axillary region. She came in last night, febrile and hypotensive. She was treated with IV fluid. She was briefly on Levophed that was stopped about 3 hours ago. She feels better. PAST MEDICAL HISTORY: 1. Hypothyroidism. 2. Left breast invasive ductal carcinoma with triple negative markers. She also had positive lymph nodes 01/27 sampled specimens. PAST SURGICAL HISTORY: She had left and right mastectomies with lymph node dissection. ALLERGIES: NONE. MEDICATIONS: Prior to admission; 1. Bactrim. 2. Cipro. 3. Ultram. FAMILY MEDICAL HISTORY: Remarkable for heart disease and ovarian cancer. REVIEW OF SYSTEMS: A 12-point review of systems is otherwise negative. PHYSICAL EXAMINATION: VITAL SIGNS: Temperature 98.3, pulse 89, blood pressure 115/68, and O2 saturation 94% on room air. GENERAL: She is awake and alert, in no distress. HEENT: Unremarkable. NECK: No JVD. LUNGS: Clear without wheezing. CARDIAC: S1 and S2. Regular. BREASTS: She has bilateral mastectomy scars. She has some pus drainage in her left axilla out of the most lateral portion of the scar. ABDOMEN: Soft and nontender. EXTREMITIES: No clubbing, cyanosis, or edema. LABORATORY DATA: White blood cell count 6.4, hematocrit 28.4, and platelet count 317. Sodium 139, potassium 3.7, chloride 112, CO2 of 20, BUN 8, creatinine 0.7, and glucose 97. Lactate down to 1.2. ASSESSMENT: 1. Resolving septic shock. 2. Wound infection. PLAN: The patient is on appropriate antibiotics. This includes cefepime, Levaquin, and vancomycin. She will be transferred out to the surgical floor since she is now not requiring vasopressors. Surgical consultation has been obtained. Job ID: [id number]
--- NOTE | 2018-02-17 15:40 | PDOC.PN ---
- Subjective Encounter Start Date: 02/17/18 Encounter Start Time: 15:39 Ms. Juliano Mixon was seen today in follow-up of wound infection. She says the pain in the area is much improved. She denies chest pain or shortness of breath. - Objective Resuscitation Status - Order Detail: 02/17/18 01:24 Resuscitation Status Routine Resuscitation Status: FULL: Full Resuscitation MAR Reviewed: Yes Vital Signs & Weight: Vital Signs (12 hours) Temp Pulse Resp BP Pulse Ox 02/17/18 12:05 98.6 F 77 14 112/67 93 L 02/17/18 10:25 94 L 02/17/18 07:44 100 02/17/18 07:00 98.3 F 02/17/18 04:00 94 L Weight Weight 159 lb 13.362 oz Most Recent Monitor Data Heart Rate from ECG 84 NIBP 140/88 NIBP BP-Mean 105 Respiration from ECG 24 SpO2 93 I&O: 02/16/18 02/17/18 02/18/18 06:59 06:59 06:59 Intake Total 291.5 640 Output Total 1100 Balance -808.5 640 Result Diagrams: 02/17/18 02:05 02/17/18 02:05 Phys Exam - Physical Examination HEENT: PERRLA Respiratory: no wheezing, no rales, no rhonchi, clear to auscultation bilateral Cardiovascular: RRR, no significant murmur, no rub Gastrointestinal: soft, non-tender, no distention, positive bowel sounds Musculoskeletal: no edema, pulses present Dx/Plan (1) Incisional infection Code(s): T81.49XA - INFECTION FOLLOWING A PROCEDURE, OTHER SURGICAL SITE, INIT Status: Acute (2) Healthcare-associated pneumonia Code(s): J18.9 - PNEUMONIA, UNSPECIFIED ORGANISM Status: Acute (3) Breast cancer Status: Chronic - Plan * Incision Infection with sepsis- improved- continue broad spectrum antibiotics * Pneumonia- CTA demonstrated multi-focal pneumonia, she has been recently hopsitalized- will therefore treat has Healthcare Associated Pneumonia- for which she is adequately covered for * Further recommendations per General Surgery.
--- NOTE | 2018-02-17 17:48 | CON ---
DATE OF CONSULTATION: 02/17/2018 HISTORY OF PRESENT ILLNESS: This is a 57-year-old woman, who is postoperative day #20, status post bilateral mastectomies. The patient was seen by her surgeon 3 days ago in the clinic complaining of drainage from the left mastectomy incisional wound. A drain was placed at that time and the patient was discharged home on antibiotics. She returned to the clinic again the following day and the drain was readjusted according to the patient to optimize drainage. The patient presented to the Emergency Department yesterday complaining of some drainage from the right mastectomy wound, this time associated with some malaise and low blood pressure. Workup in the Emergency Department yesterday included a CBC though with normal white blood cell count. Metabolic profile revealed a lactate of 2.4 associated with low blood pressure requiring large volume fluid resuscitation. The patient was admitted to the Medicine Service at that time with intravenous antibiotics was commenced. At the time of my evaluation, the patient is awake and alert. She reports adequate pain control. She denies any fevers or chills. Her blood pressure has since normalized. Urinary output is adequate. The patient has a Juliane coma Scale of 15. Vital signs this morning includes a blood pressure of 140/88, pulse is 85, respiratory rate is 20, maximum temperature in last 24 hours is noted at 98.3 degrees Fahrenheit, and oxygen saturation is 94% on room air. PAST MEDICAL HISTORY: Pertinent for recently diagnosed left breast high-grade invasive ductal carcinoma. Other pertinent medical history includes hypothyroidism. PAST SURGICAL HISTORY: Pertinent for bilateral mastectomies, left modified radical and right simple, of which the patient is postop day #20. ALLERGIES: THE PATIENT HAS NO KNOWN DRUG ALLERGIES. MEDICATIONS: Prehospital medication included ciprofloxacin and Bactrim, which the patient had taken 2 days course prior to this presentation. REVIEW OF SYSTEMS: Ten point review of systems is essentially unremarkable except for stated in past medical history and chief complaint. PHYSICAL EXAMINATION: GENERAL: This reveals a 57-year-old normally developed woman, who is otherwise coherent, interactive, and appears stated age. The patient is alert and oriented x3, appears to be in no acute distress at time of my evaluation. BREASTS: I examined the mastectomy wounds in the presence of the patient's nurse. The right mastectomy incisional wound is intact, clean, and dry. There is no surrounding erythema present. The left mastectomy incisional wound is mostly intact with drainage of the most lateral aspect of the wound. There is a minimal amount of surrounding erythema present. No flocculence is palpated on both incisional wounds. HEART: Reveals regular rate and rhythm. No murmurs or gallops auscultated. LUNGS: Clear to auscultation bilaterally. Breathing regular, nonlabored. NEUROLOGIC: Reveals no focal deficits present. LABORATORY FINDINGS: This morning includes metabolic profile; sodium 139, potassium is 3.7, chloride is 112, bicarb is 20, BUN 8, creatinine 0.73, glucose is 97, and total bilirubin is 0.2. C-reactive protein is elevated at 11.28. CBC was 6400 white blood cells, hemoglobin and hematocrit 9.8 and 28.4 respectively. Platelet count is 317,000. IMPRESSION: 1. Postoperative day #20, status post left modified radical and right simple mastectomies. 2. The left mastectomy wound cellulitis. 3. The wound culture obtained yesterday gram stain shows few gram-positive cocci in clusters. 4. Currently, the patient is on levofloxacin and vancomycin intravenously. PLAN: 1. I agree with current antibiotic regimen. 2. There is no acute surgical indication for this patient at this time. However, I will continue to follow the patient's hospital course and make further recommendations as necessary. 3. I am seeing this patient on behalf of Dr. Tejeda, who will resume surgical care tomorrow. Job ID: [id number]
[2018-02-17] MEDS: Morphine 4 MG/ML VIAL SLOW IVP PRN (21:01)
[2018-02-18] MEDS: Cefepime 1 GM in Sodium Chloride 0.9% 100 ML IVPB SCH (03:57)
[2018-02-18 07:31] LABS: Vancomycin, Trough 9.4 ug/mL
[2018-02-18] MEDS: Enoxaparin Sodium 40 MG/0.4 ML SYRINGE SC SCH (09:05)
[2018-02-18] MEDS: Famotidine 20 MG TAB PO SCH ×2 (09:06→20:43)
[2018-02-18] MEDS: Vancomycin HCl 750 MG in Sodium Chloride 0.9% 250 ML 250 ML IVPB SCH (10:41)
[2018-02-18] MEDS ORDERED: Vancomycin HCl 1 GM in Premix Bag 1 BAG IVPB SCH (11:00)
--- NOTE | 2018-02-18 14:40 | PDOC.PN ---
- Subjective Encounter Start Date: 02/18/18 Encounter Start Time: 14:38 Ms. Henao was seen today in follow-up of incision Infection. She has less pain in the area. She notes some chest pressure ealier, for just a brief moment, but is now doing fine. - Objective Resuscitation Status - Order Detail: 02/17/18 01:24 Resuscitation Status Routine Resuscitation Status: FULL: Full Resuscitation MAR Reviewed: Yes Vital Signs & Weight: Vital Signs (12 hours) Temp Pulse Resp BP Pulse Ox 02/18/18 12:30 98.5 F 76 16 101/63 93 L 02/18/18 09:06 92 L 02/18/18 08:25 98.6 F 68 17 111/69 92 L 02/18/18 04:07 98.6 F 69 18 133/70 95 Weight Weight 159 lb 13.362 oz Most Recent Monitor Data Heart Rate from ECG 84 NIBP 140/88 NIBP BP-Mean 105 Respiration from ECG 24 SpO2 93 I&O: 02/17/18 02/18/18 02/19/18 06:59 06:59 06:59 Intake Total 291.5 640 Output Total 1100 Balance -808.5 640 Result Diagrams: 02/17/18 02:05 02/17/18 02:05 Phys Exam - Physical Examination HEENT: PERRLA Respiratory: no wheezing, no rales, no rhonchi, clear to auscultation bilateral Cardiovascular: RRR, no significant murmur, no rub Gastrointestinal: soft, non-tender, no distention, positive bowel sounds Musculoskeletal: no edema, pulses present Dx/Plan (1) Incisional infection Code(s): T81.49XA - INFECTION FOLLOWING A PROCEDURE, OTHER SURGICAL SITE, INIT Status: Acute (2) Pneumonia, community acquired Code(s): J18.9 - PNEUMONIA, UNSPECIFIED ORGANISM Status: Acute (3) Breast cancer Status: Chronic - Plan * Incision Infection- continue local wound care- Culture results are noted, it is growing MSSA from the wound- will adjust antibiotics -discontinue Vancomycin , and replace with Rocephin * Pneumonia- Will discontinue Cefepime, and replace with Azithromycin- She likely has Community Acquired Pneumonia- as she was in the Hospital for less than 3 days in January * Breast cancer * Disposition as per General Surgery
[2018-02-18] MEDS ORDERED: Azithromycin 500 MG in Sodium Chloride 0.9% 250 ML 250 ML IVPB SCH (16:00)
--- NOTE | 2018-02-18 16:01 | PDOC.GSPN ---
Surgery Progress Note: Subj - Subjective Narrative: Patient is still having some drainage from the right mastectomy incision and from the left axillary site. Pain is tolerable. She is breathing okay. Incisions are intact except for a small open area near the lateral third of the right mastectomy incision. There is some expressible wheelie drainage from the medial portion of the mastectomy incision consistent with fat necrosis. According to the family this was malodorous when it first began to drain but there is no odor today and no erythema. The drainage from the left axillary site is still purulent and the skin surrounding the drain is irritated. Assessment/plan: Fat necrosis of the right mastectomy incision. This is draining and does not appear infected. Draining abscess of the left axillary incision which is controlled with Roland. If it continues to drain we may need to irrigate this or wash it out in the operating room, but currently I favor nonoperative management. Continue antibiotics for MSSA abscess and pneumonia. Surgery Progress Note: Obj - Vital signs Vital signs: Vital Signs - Most Recent Temp Pulse Resp BP Pulse Ox 98.5 F 76 16 101/63 93 L 02/18/18 12:30 02/18/18 12:30 02/18/18 12:30 02/18/18 12:30 02/18/18 12:30 Surgery Progress Note: Results - Labs Result Diagrams: 02/17/18 02:05 02/17/18 02:05 Lab results: Laboratory Results - last 24 hr 02/18/18 06:46 Vancomycin Trough 9.4
[2018-02-18] MEDS: cefTRIAXone\\ROCEPHIN 2 GM in Sodium Chloride 0.9% 100 ML IVPB SCH (16:02)
[2018-02-18] MEDS: Azithromycin 500 MG in Sodium Chloride 0.9% 250 ML 250 ML IVPB SCH (18:29)
[2018-02-19] MEDS: Enoxaparin Sodium 40 MG/0.4 ML SYRINGE SC SCH (08:45)
[2018-02-19] MEDS: Famotidine 20 MG TAB PO SCH ×2 (08:45→20:25)
[2018-02-19] MEDS: Morphine 4 MG/ML VIAL SLOW IVP PRN ×2 (08:45→20:33)
--- NOTE | 2018-02-19 14:57 | PDOC.PN ---
- Subjective Encounter Start Date: 02/19/18 Encounter Start Time: 11:00 Subjective: feels better, is amb in room -: no pain at surgical site - Objective Resuscitation Status - Order Detail: 02/17/18 01:24 Resuscitation Status Routine Resuscitation Status: FULL: Full Resuscitation MAR Reviewed: Yes Vital Signs & Weight: Vital Signs (12 hours) Temp Pulse Resp BP Pulse Ox 02/19/18 12:00 98.4 F 71 14 118/73 94 L 02/19/18 08:45 94 L 02/19/18 08:32 98.5 F 68 12 127/80 93 L 02/19/18 05:21 95 02/19/18 04:50 98.2 F 62 20 115/75 95 Weight Weight 159 lb 13.362 oz Most Recent Monitor Data Heart Rate from ECG 84 NIBP 140/88 NIBP BP-Mean 105 Respiration from ECG 24 SpO2 93 I&O: 02/18/18 02/19/18 02/20/18 06:59 06:59 06:59 Intake Total 640 1480 Balance 640 1480 Result Diagrams: 02/17/18 02:05 02/17/18 02:05 Phys Exam - Physical Examination HEENT: PERRLA, moist MMs Neck: no JVD, supple Respiratory: no wheezing, no rales Cardiovascular: RRR, no significant murmur Gastrointestinal: soft, non-tender, positive bowel sounds Musculoskeletal: no edema, pulses present Neurological: non-focal, moves all 4 limbs Psychiatric: normal affect, A&O x 3 Dx/Plan (1) Healthcare-associated pneumonia Code(s): J18.9 - PNEUMONIA, UNSPECIFIED ORGANISM Status: Acute (2) Incisional infection Code(s): T81.49XA - INFECTION FOLLOWING A PROCEDURE, OTHER SURGICAL SITE, INIT Status: Acute Comment: at mastectomy sites b/l (3) Breast cancer Status: Acute Qualifiers: Estrogen receptor status: negative Patient sex: female Laterality: right Comment: s/p mod radical mastectomy on right and simple mast on left (4) Chronic anemia Code(s): D64.9 - ANEMIA, UNSPECIFIED Status: Chronic - Plan cultures are growing mssa -: is on zithromax, ceftriaxone -: dc plan per gen surg advice -: to amb in hallway as tolerated * . Review of Systems - Medications/Allergies Allergies/Adverse Reactions: Allergies Allergy/AdvReac Type Severity Reaction Status Date / Time No Known Allergies Allergy Verified 01/23/18 17:00 Medications: Current Medications Acetaminophen (Tylenol) 650 mg PO Q4H PRN PRN Reason: Headache/Fever/Mild Pain (1-3) Last Admin: 02/18/18 20:48 Dose: 650 mg Enoxaparin Sodium (Lovenox) 40 mg SC 0900 [facility] Last Admin: 02/19/18 08:45 Dose: 40 mg Famotidine (Pepcid) 20 mg PO BID [facility] Last Admin: 02/19/18 08:45 Dose: 20 mg Guaifenesin/Dextromethorphan (Robitussin Dm) 15 ml PO Q4H PRN PRN Reason: Cough Ceftriaxone Sodium 2 gm/ (Sodium Chloride) 100 mls @ 200 mls/hr IVPB Q24HR [facility] Last Admin: 02/18/18 16:02 Dose: 100 mls Azithromycin 500 mg/ Sodium (Chloride) 250 mls @ 250 mls/hr IVPB Q24HR [facility] Last Admin: 02/18/18 18:29 Dose: 250 mls Morphine Sulfate (Morphine) 2 mg SLOW IVP Q4H PRN PRN Reason: Severe Pain (7-10) Last Admin: 02/19/18 08:45 Dose: 2 mg Senna/Docusate Sodium (Senokot S) 2 tab PO BID PRN PRN Reason: Constipation
[2018-02-19] MEDS: cefTRIAXone\\ROCEPHIN 2 GM in Sodium Chloride 0.9% 100 ML IVPB SCH (15:02)
[2018-02-19] MEDS: Azithromycin 500 MG in Sodium Chloride 0.9% 250 ML 250 ML IVPB SCH (17:55)
--- NOTE | 2018-02-19 23:26 | PRG ---
DATE OF SERVICE: 02/19/2018 Ms. Juliano Mixon is feeling well today. Tylenol is not quite controlling her pain, but morphine did help her yesterday. She has had less drainage from both of her sites. The incisions are clean. The erythema has resolved. There is still a little bit of expressible drainage from the medial portion of the right mastectomy incision. This is oily in nature and does not appear cloudy, and does not have any odor. The drainage from the left axilla still has a purulent appearance to it, but there is not any expressible and the amount has decreased. ASSESSMENT: Stable and slowly improving with antibiotics and conservative wound management. Continue current management. Job ID: [id number]
[2018-02-19] MEDS ORDERED: traMADol HCl 50 MG TAB PO PRN (23:33)
[2018-02-20 08:38] LABS: #Eosinphils 0.1 thou/uL (0.0-0.7); #Lymphocytes 1.3 thou/uL (1.20-3.40); #Monocytes 0.3 thou/uL (0.11-0.59); #Neutrophils 3.1 thou/uL (1.40-6.50); %Basophils 0.1 % (0.0-1.0); %Eosinophils 2.3 % (0.0-10.0); %Lymphocytes 27.3 % (21.0-51.0); %Monocytes 6.6 % (0.0-10.0); %Neutrophils 63.7 % (42.0-75.0); Hemoglobin 10.7 g/dL (12.0-16.0); Mean Corpuscular HGB CONC 33.4 g/dL (32.0-36.0); Mean Corpuscular Hemoglobin 31.9 pg (27.0-31.0); Mean Corpuscular Volume 95.4 fL (78.0-98.0); Mean Platelet Volume 7.1 fL (7.4-10.4); Platelet Count 390 thou/uL (130-400); RBC Distribution Width 12.9 % (11.5-14.5); Red Blood Cell (RBC) Count 3.37 mill/uL (4.20-5.40); White Blood Cell (WBC) Count 4.8 thou/uL (4.8-10.8)
[2018-02-20 08:58] LABS: ALT (SGPT) 38 U/L (8-55); AST (SGOT) 49 U/L (5-34); Albumin 3.2 g/dL (3.5-5.0); Alkaline Phosphatase 87 U/L (40-150); Anion Gap 14 mmol/L (10-20); BUN (Urea Nitrogen) 7 mg/dL (9.8-20.1); Bilirubin, Total 0.2 mg/dL (0.2-1.2); Calc. Creatinine Clearance 107 mL/min (70-130); Calcium 9.3 mg/dL (7.8-10.44); Carbon Dioxide 22 mmol/L (22-29); Chloride 105 mmol/L (98-107); Estimated GFR-MDRD Greater than 90; Globulin 3.2 g/dL (2.4-3.5); Glucose 86 mg/dL (70-105); Potassium 4.4 mmol/L (3.5-5.1); Protein, Total 6.4 g/dL (6.0-8.3); Sodium 137 mmol/L (136-145)
[2018-02-20] MEDS: Enoxaparin Sodium 40 MG/0.4 ML SYRINGE SC SCH (09:27)
[2018-02-20] MEDS: Famotidine 20 MG TAB PO SCH ×2 (09:28→20:23)
[2018-02-20] MEDS: traMADol HCl 50 MG TAB PO PRN ×2 (09:31→20:27)
--- NOTE | 2018-02-20 10:46 | PDOC.PN ---
- Subjective Encounter Start Date: 02/20/18 Encounter Start Time: 08:15 Subjective: no pain now, is amb in room -: feels better - Objective Resuscitation Status - Order Detail: 02/17/18 01:24 Resuscitation Status Routine Resuscitation Status: FULL: Full Resuscitation MAR Reviewed: Yes Vital Signs & Weight: Vital Signs (12 hours) Temp Pulse Resp BP Pulse Ox 02/20/18 08:00 98.6 F 72 20 111/75 95 02/20/18 04:48 98.3 F 78 20 113/74 96 02/20/18 00:33 98.4 F 72 20 111/73 97 Weight Weight 159 lb 13.362 oz Most Recent Monitor Data Heart Rate from ECG 84 NIBP 140/88 NIBP BP-Mean 105 Respiration from ECG 24 SpO2 93 I&O: 02/19/18 02/20/18 02/21/18 06:59 06:59 06:59 Intake Total 1480 720 Balance 1480 720 Result Diagrams: 02/20/18 08:03 02/20/18 08:03 Phys Exam - Physical Examination HEENT: PERRLA, moist MMs Neck: no JVD, supple Respiratory: no wheezing, no rales Cardiovascular: RRR, no significant murmur Gastrointestinal: soft, non-tender, positive bowel sounds Musculoskeletal: no edema, pulses present Neurological: non-focal, moves all 4 limbs Psychiatric: normal affect, A&O x 3 Dx/Plan (1) Healthcare-associated pneumonia Code(s): J18.9 - PNEUMONIA, UNSPECIFIED ORGANISM Status: Acute (2) Incisional infection Code(s): T81.49XA - INFECTION FOLLOWING A PROCEDURE, OTHER SURGICAL SITE, INIT Status: Acute Comment: at mastectomy sites b/l (3) Breast cancer Status: Acute Qualifiers: Estrogen receptor status: negative Patient sex: female Laterality: right Comment: s/p mod radical mastectomy on right and simple mast on left (4) Chronic anemia Code(s): D64.9 - ANEMIA, UNSPECIFIED Status: Chronic - Plan on ceftriaxone and zithromax -: wound care per gen surg adv -: add feso4 for anemia -: morphine prn for pain -: to amb in hallway as tolerated, dc plan per gen surg adv * . Review of Systems - Medications/Allergies Allergies/Adverse Reactions: Allergies Allergy/AdvReac Type Severity Reaction Status Date / Time No Known Allergies Allergy Verified 01/23/18 17:00 Medications: Current Medications Acetaminophen (Tylenol) 650 mg PO Q4H PRN PRN Reason: Headache/Fever/Mild Pain (1-3) Last Admin: 02/18/18 20:48 Dose: 650 mg Enoxaparin Sodium (Lovenox) 40 mg SC 0900 [facility] Last Admin: 02/20/18 09:27 Dose: 40 mg Famotidine (Pepcid) 20 mg PO BID [facility] Last Admin: 02/20/18 09:28 Dose: 20 mg Guaifenesin/Dextromethorphan (Robitussin Dm) 15 ml PO Q4H PRN PRN Reason: Cough Heparin Sodium (Porcine) (Heparin Lock Flush 100 Units/Ml) 500 units IVF Q12HR PRN PRN Reason: Heparin Flush Ceftriaxone Sodium 2 gm/ (Sodium Chloride) 100 mls @ 200 mls/hr IVPB Q24HR [facility] Last Admin: 02/19/18 15:02 Dose: 100 mls Azithromycin 500 mg/ Sodium (Chloride) 250 mls @ 250 mls/hr IVPB Q24HR [facility] Last Admin: 02/19/18 17:55 Dose: 250 mls Morphine Sulfate (Morphine) 2 mg SLOW IVP Q4H PRN PRN Reason: Severe Pain (7-10) Last Admin: 02/19/18 20:33 Dose: 2 mg Senna/Docusate Sodium (Senokot S) 2 tab PO BID PRN PRN Reason: Constipation Tramadol HCl (Ultram) 50 mg PO Q4H PRN PRN Reason: PAIN SCALE 1-5 2ND LINE Tramadol HCl (Ultram) 100 mg PO Q4H PRN PRN Reason: PAIN SCALE 6-10 Last Admin: 02/20/18 09:31 Dose: 100 mg
[2018-02-20] MEDS: cefTRIAXone\\ROCEPHIN 2 GM in Sodium Chloride 0.9% 100 ML IVPB SCH (16:31)
[2018-02-20] MEDS: Ferrous Sulfate 325 MG TAB PO SCH (16:32)
[2018-02-20] MEDS: Azithromycin 500 MG in Sodium Chloride 0.9% 250 ML 250 ML IVPB SCH (18:37)
[2018-02-21] MEDS: Ferrous Sulfate 325 MG TAB PO SCH (08:59)
[2018-02-21] MEDS: Enoxaparin Sodium 40 MG/0.4 ML SYRINGE SC SCH (08:59)
[2018-02-21] MEDS: Famotidine 20 MG TAB PO SCH (08:59)
--- NOTE | 2018-02-21 10:58 | PDOC.PN ---
- Subjective Encounter Start Date: 02/21/18 Encounter Start Time: 07:40 Subjective: feels better, eating well and amb in room -: drainage is getting better from surgical sites - Objective Resuscitation Status - Order Detail: 02/17/18 01:24 Resuscitation Status Routine Resuscitation Status: FULL: Full Resuscitation MAR Reviewed: Yes Vital Signs & Weight: Vital Signs (12 hours) Temp Pulse Resp BP Pulse Ox 02/21/18 07:53 98.0 F 72 16 105/51 L 94 L 02/21/18 04:09 98.1 F 73 20 104/69 95 02/21/18 00:50 97.8 F 74 20 104/68 94 L Weight Weight 159 lb 13.362 oz Most Recent Monitor Data Heart Rate from ECG 84 NIBP 140/88 NIBP BP-Mean 105 Respiration from ECG 24 SpO2 93 I&O: 02/20/18 02/21/18 02/22/18 06:59 06:59 06:59 Intake Total 720 240 Balance 720 240 Result Diagrams: 02/20/18 08:03 02/20/18 08:03 Phys Exam - Physical Examination HEENT: PERRLA, moist MMs Neck: no JVD, supple Respiratory: no wheezing, no rales Cardiovascular: RRR, no significant murmur Gastrointestinal: soft, non-tender, positive bowel sounds Musculoskeletal: no edema, pulses present Neurological: non-focal, moves all 4 limbs Psychiatric: normal affect, A&O x 3 Dx/Plan (1) Healthcare-associated pneumonia Code(s): J18.9 - PNEUMONIA, UNSPECIFIED ORGANISM Status: Acute (2) Incisional infection Code(s): T81.49XA - INFECTION FOLLOWING A PROCEDURE, OTHER SURGICAL SITE, INIT Status: Acute Comment: at mastectomy sites b/l (3) Breast cancer Status: Acute Qualifiers: Estrogen receptor status: negative Patient sex: female Laterality: right Comment: s/p mod radical mastectomy on right and simple mast on left (4) Chronic anemia Code(s): D64.9 - ANEMIA, UNSPECIFIED Status: Chronic - Plan d/w , dc pt home on bactrim and cipro -: Pt has f/u appt with -: she will see when her wounds heal well -: she has 16 tabs of both antibiotics with her -: dc pt home, dressing changes per surg adv * .
[2018-02-21 12:31] VITALS: BP 102/66; TEMP 98.3
== END 2018-02-21 13:25 | disposition home or self-care (01) | DRG 862 ==
LOC: ERS 11:24 → ERHOLD 23:33 → CCU 02-17 03:03 → SURG B 02-17 10:49
PROVIDERS: ADMIT Family Medicine; ATTEND Family Medicine
DX: T81.41XA Infection following a procedure, superficial incisional surgical site, initial encounter (principal); A41.9 Sepsis, unspecified organism; R65.21 Severe sepsis with septic shock; J18.9 Pneumonia, unspecified organism; I24.8 Other forms of acute ischemic heart disease; E87.2 Acidosis; T81.44XA Sepsis following a procedure, initial encounter; E03.9 Hypothyroidism, unspecified; B95.61 Methicillin susceptible Staphylococcus aureus infection as the cause of diseases classified elsewhere; D64.9 Anemia, unspecified; Z85.3 Personal history of malignant neoplasm of breast; Z90.13 Acquired absence of bilateral breasts and nipples; Z82.49 Family history of ischemic heart disease and other diseases of the circulatory system; Z80.41 Family history of malignant neoplasm of ovary
CPT/HCPCS: 36415; 71045; 71275; 80053; 80202; 81001; 81003; 81015; 82533; 82550; 82553; 83605; 83690; 83880; 84484; 85025; 86140; 87040; 87070; 87077; 87086; 87147; 87186; 87205; 93005; 96361; 96365; 96366; 96367; 96375; 99292; J0456; J0692; J0696; J1642; J1650; J1956; J2270; J2405; J2543; J3370; J3490; J7050

== ENCOUNTER 2018-05-08 07:51 | Outpatient (CLI) | payer OTHER ==
--- NOTE | 2018-05-08 09:51 | CT ---
CT OF THE CHEST WITH CONTRAST CT OF THE ABDOMEN AND PELVIS WITH CONTRAST: COMPARISON: 02/16/2018, 04/09/2013. HISTORY: Breast cancer status post left mastectomy. Evaluate for metastatic disease. TECHNIQUE: 1. Multiple contiguous axial images were obtained in a CT of the chest with contrast. Coronal refor mats were performed. 2. Multiple contiguous axial images were obtained in a CT of the abdomen and pelvis with contrast. Coronal reformats were performed. FINDINGS: CHEST: The heart is normal size without focal cardiac abnormality. No hilar or mediastinal lymphadenopathy are seen No pneumothorax or pleural effusion are seen. Mild atelectasis is seen in both lung bases which has improved significantly compared to the prior examination. There is a stable nodular opacity in the r ight middle lobe measuring mm in size. No other pulmonary nodules are seen. No focal infiltrates a re present. Postsurgical changes are seen in the left chest wall. Clips are seen in the left axilla from prior l eft axillary dissection. Degenerative changes are seen in the spine. CT ABDOMEN/PELVIS: Gallstones are seen in the gallbladder. The liver, kidneys, adrenal glands, spleen, and pancreas are unremarkable. No free air, free fluid, or stranding changes are seen in the abdomen or pelvis. The large and small bowel are unremarkable. The reproductive organs are unremarkable. The appendix is normal. No abdominal or pelvic lymphadenopathy are seen. Degenerative changes are seen in the spine. The abdominal wall soft tissues are unremarkable. IMPRESSION: 1. Postsurgical changes from left mastectomy. 2. Small stable right middle lobe pulmonary nodule. 3. No evidence of intraabdominal/pelvic metastatic disease. 4. Cholelithiasis. POS: [facility]
== END 2018-05-08 07:52 | disposition home or self-care (01) ==
LOC: CT 07:51
PROVIDERS: ATTEND Internal Medicine Hematology & Oncology
DX: C50.412 Malignant neoplasm of upper-outer quadrant of left female breast (principal); R91.1 Solitary pulmonary nodule; K80.20 Calculus of gallbladder without cholecystitis without obstruction; Z90.12 Acquired absence of left breast and nipple
CPT/HCPCS: 71260; 74177

== ENCOUNTER 2018-07-09 14:02 | Outpatient (CLI) | payer OTHER ==
[~2018-07-09 14:02] MED LIST changes: -Dexamethasone 4 mg/ml Vial SLOW IVP SCH; +ISOVUE-370 76%-LOCM 1 ML ONE; -PACLitaxel 140 MG in Sodium Chloride 0.9% 250 ML 250 ML IVPB SCH; -Sodium Chloride 0.9% 20 ML ONE
--- NOTE | 2018-07-09 18:32 | CT ---
CHEST, ABDOMEN AND PELVIC CT: 07/09/18 HISTORY: Low back pain. Left sided pain. Flank pain. Recurrent breast cancer. COMPARISON: 05/08/18. FINDINGS: CHEST CT: The visualized thyroid gland is unremarkable. Interval increase in size and number of mediastinal lym ph nodes. There is enlarged right paratracheal lymph node currently measuring 1.8 x 2.3 cm. Enlarged subcarinal lymph node measuring 2.6 x 1.8 cm. Enlarged right hilar lymph node measuring 2.9 x 1.7 cm. Infrahilar lymph node, right sided measuring 1.4 x 1.0 cm. Additionally, there is a posterior right mediastinal lymph node measuring 1.7 x 1.8 cm. Lymph nodes have developed since the previous examina tion. Additional nonspecific prevascular lymph nodes are noted. Heart size is normal. No significant pericardial fluid. The thoracic and abdominal aorta have a normal caliber. No periaortic fat strandin g. There are patchy linear opacities throughout the lung parenchyma with minimal nonspecific nodularity. Minimal scarring in the lingula is noted. Dependent atelectatic changes identified in both lower lob es. Additional consolidation left lower lobe may be due to atelectasis or pneumonia. Small left sided pleural effusion. Trace and central bronchi are patent. Redemonstration of changes compatible with l eft mastectomy. ABDOMEN CT: CT evidence of cholelithiasis. Portal vein is patent. Liver, spleen, pancreas, and adrenal glands have appropriate attenuation and enhancement. Symmetric enhancement of the kidneys. Bilaterally, no obstructive uropathy. No gastrohepatic, retrocrural or periportal lymphadenopathy. No mesenteric mass, lymphadenopathy, free air of free fluid. Limited evaluation of the alimentary canal due to lack of oral contrast. No evidence of bowel obstruc tion. Ileocecal junction is normal. Occasional diverticulum of the sigmoid colon. No diverticulitis. Normal caliber appendix. CT PELVIS: No mass, lymphadenopathy, free air or free fluid. There is mucosa thickening of the urinary bladder. No lytic or blastic lesions in the osseous structures. IMPRESSION: 1. Interval development of mediastinal and right hilar lymphadenopathy. 2. Interval development of a left sided effusion with consolidation in the left lower lobe due t o atelectasis or pneumonia. 3. Stable nodularity of the lung parenchyma. 4. Cholelithiasis without evidence of cholecystitis. 5. Diverticulosis, without evidence of diverticulitis. Normal caliber appendix. POS: [facility]
== END 2018-07-09 14:03 | disposition home or self-care (01) ==
LOC: BICCT 14:02
PROVIDERS: ATTEND Radiology Radiation Oncology
DX: C50.412 Malignant neoplasm of upper-outer quadrant of left female breast (principal); R59.0 Localized enlarged lymph nodes; K80.20 Calculus of gallbladder without cholecystitis without obstruction; K57.30 Diverticulosis of large intestine without perforation or abscess without bleeding; J90 Pleural effusion, not elsewhere classified; J98.4 Other disorders of lung
CPT/HCPCS: 71260; 74177; Q9966

== ENCOUNTER 2018-08-29 08:20 | Outpatient (CLI) | payer OTHER ==
--- NOTE | 2018-08-29 09:41 | MRI ---
MRI THORACIC SPINE WITHOUT CONTRAST: HISTORY: Thoracic disc disease. Back pain, left-sided rib pain FINDINGS: The vertebral body heights and marrow signal are maintained. No focal disc herniation, central canal stenosis or cord impingement is identified. The thoracic spinal cord demonstrates normal course, caliber and signal. There are degenerative changes in the costovertebral joints. Incidental note is made of a left-sided pleural effusion. IMPRESSION: No evidence of disc herniation or cord compression.
--- NOTE | 2018-08-29 09:51 | RAD ---
FRONTAL AND LATERAL IMAGING OF THE THORACIC SPINE: Date: 08/29/2018 COMPARISON: None. HISTORY: Thoracic disc disease, pain. FINDINGS: There is a large, incompletely visualized area of dense opacity involving the inferior two thirds of the left hemithorax suggesting large left pleural effusion with associated pulmonary parenchymal opacity. This has progressed markedly when compared to CT examination performed 07/09/2018. Partially visualized right Port-A-Cath noted. No anterolisthesis or retrolisthesis noted within the thoracic spine. No acute fracture. Thoracic spi ne better assessed on recent MRI. IMPRESSION: Large left pleural effusion. This is concerning for a malignant effusion given history of breast canc er. CODE T Transcribed Date/Time: 08/29/2018 9:55 AM
== END 2018-08-29 08:21 | disposition home or self-care (01) ==
LOC: MRI 08:20
PROVIDERS: ATTEND Family Medicine
DX: M51.9 Unspecified thoracic, thoracolumbar and lumbosacral intervertebral disc disorder (principal); J90 Pleural effusion, not elsewhere classified
CPT/HCPCS: 72070; 72146

== ENCOUNTER 2018-09-12 13:42 | Outpatient (CLI) | payer OTHER ==
[~2018-09-12 13:42] MED LIST changes: +Gadobenate Dimeglumine 529 MG/1 ML (20ML VIAL) ONE; -ISOVUE-370 76%-LOCM 1 ML ONE
--- NOTE | 2018-09-12 15:52 | MRI ---
Exam: Brain MRI with and without contrast HISTORY: Left breast cancer with dizziness. COMPARISON: None FINDINGS: Gradient echo sequence: No hemorrhage Calvarium: Appropriate T1 marrow signal intensity Midline brain parenchyma: Unremarkable Cerebrum:There is T2 and FLAIR hyperintensity involving the left frontal cortex as well as the associ ated white matter. There is sulcal effacement involving the anterior and medial aspect of the left frontal lobe. There are scattered T2 and FLAIR white matter hyperintensities due to chronic small ves coty ischemic change. Ventricles: No evidence of hydrocephalus. Sinuses and mastoid air cells: Adequate aeration Diffusion: Central arterial flow is maintained. Absent restricted diffusion. Postcontrast images:Small focus of enhancement involving the left frontal subcortical white matter me asuring 0.3 x 0.2 cm. There is a heterogeneously enhancing mass involving the anterior left frontal lobe, measuring 1.6 cm cranial caudal by 1.4 cm mediolateral by 1.5 cm anterior posterior. IMPRESSION: Two metastatic lesions along the left frontal lobe. Results discussed with Dr. Og 09/12/2018 at 3:49 PM Code CR Transcribed Date/Time: 09/12/2018 4:04 PM
== END 2018-09-12 13:43 | disposition home or self-care (01) ==
LOC: MRI 13:42
PROVIDERS: ATTEND Internal Medicine Medical Oncology
DX: C50.412 Malignant neoplasm of upper-outer quadrant of left female breast (principal); R42 Dizziness and giddiness; C79.31 Secondary malignant neoplasm of brain
CPT/HCPCS: 36415; 70553; 80053; 82248; 83615; 84100; 84443; 84550

== ENCOUNTER 2018-10-06 12:00 | Inpatient (IN) | payer OTHER ==
[2018-10-06 12:45] LABS: #Lymphocytes 0.5 thou/uL (1.20-3.40); #Monocytes 0.1 thou/uL (0.11-0.59); #Neutrophils 4.6 thou/uL (1.40-6.50); %Basophils 0.2 % (0.0-1.0); %Eosinophils 0.4 % (0.0-10.0); %Lymphocytes 10.3 % (21.0-51.0); %Monocytes 1.8 % (0.0-10.0); %Neutrophils 87.3 % (42.0-75.0); Hemoglobin 12.7 g/dL (12.0-16.0); Mean Corpuscular HGB CONC 35.2 g/dL (32.0-36.0); Mean Corpuscular Hemoglobin 33.5 pg (27.0-31.0); Mean Corpuscular Volume 95.3 fL (78.0-98.0); Platelet Count 160 thou/uL (130-400); RBC Distribution Width 15.3 % (11.5-14.5); Red Blood Cell (RBC) Count 3.79 mill/uL (4.20-5.40); White Blood Cell (WBC) Count 5.2 thou/uL (4.8-10.8)
--- NOTE | 2018-10-06 12:55 | CT ---
Exam: Head CT without contrast HISTORY: Dizziness. Incontinence. Metastatic breast cancer. Evaluate for intracranial metastases. COMPARISON: None Correlation: Brain MRI 09/12/2018 FINDINGS: Hemorrhage: No intraparenchymal hemorrhage or extra-axial hematoma. Brain parenchyma: Partially calcified 7 mm mass in the medial left frontal lobe with associated vasog enic edema, corresponding recent brain MRI finding. The remainder the cerebrum demonstrates preservation of cortical carreon-white white matter differentiation. Ventricular system: Ventricles and sulci are patent and symmetric. Calvarium: Intact. Sinuses and mastoid air cells: Adequate aeration. IMPRESSION: No acute intracranial process. Redemonstration of a known metastatic deposit medial left frontal lobe with evidence of calcification. Findings may represent post treatment change. Persistent vasogenic edema involving the left frontal lobe.
[2018-10-06 13:04] LABS: ALT (SGPT) 20 U/L (8-55); AST (SGOT) 32 U/L (5-34); Albumin 3.6 g/dL (3.5-5.0); Alkaline Phosphatase 82 U/L (40-150); Anion Gap 16 mmol/L (10-20); BUN (Urea Nitrogen) 16 mg/dL (9.8-20.1); Bilirubin, Total 0.6 mg/dL (0.2-1.2); Calc. Creatinine Clearance 0 mL/min (70-130); Calcium 8.8 mg/dL (7.8-10.44); Carbon Dioxide 23 mmol/L (22-29); Chloride 97 mmol/L (98-107); Estimated GFR-MDRD Greater than 90; Globulin 2.4 g/dL (2.4-3.5); Glucose 99 mg/dL (70-105); Potassium 4.3 mmol/L (3.5-5.1); Sodium 132 mmol/L (136-145)
[2018-10-06] MEDS ORDERED: Meclizine HCl 25 MG TAB ONE (13:10)
[2018-10-06] MEDS ORDERED: Dexamethasone 4 mg/ml Vial ONE (14:31)
[2018-10-06] MEDS ORDERED: Ondansetron PF 4 MG/2 ML Vial IVP PRN (15:28)
[2018-10-06] MEDS ORDERED: Guaifenesin DM 100-10/5 ML UDCUP PO PRN (15:28)
--- NOTE | 2018-10-06 15:35 | PDOC.EVN ---
Event Note - Event Note Event Note: H&P #[id number]
--- NOTE | 2018-10-06 15:57 | HP ---
CHIEF COMPLAINT: Dizziness as well as incontinence and blurry vision. HISTORY OF PRESENT ILLNESS: This is a 58-year-old female with known history of breast cancer with mets to the bone and brain, presenting to the hospital with dizziness as well as blurry vision and urinary incontinence. The patient's last chemotherapy was apparently a month ago. She also has severe radiation mcnamara to the left side of her chest, 7 mm mass was noted in the left frontal lobe with acute vasogenic edema. provides her history as well as daughter who is at bedside. They state that the dizziness and the episode started yesterday and lasted for about 20 minutes. She had another one this morning, which lasted for about 35, and that is why they brought her to the hospital. The patient states that in the last 6 months she has had severe significant decline of clinical function and not had any improvement in her condition whatsoever. The patient states that she feels very weak and does not have any more energy left in her to fight. The patient's family is at bedside. They state that she has no other complaints or issues. No alleviating or aggravating factors. States that this has never happened to her before. The patient is seen and examined in the ER. Family at bedside. All questions answered. REVIEW OF SYSTEMS: All systems reviewed. Pertinent positive in HPI, otherwise negative. HOME MEDICATIONS: See MAR. PAST MEDICAL HISTORY: Breast cancer with mets to the lung and brain. FAMILY HISTORY: Noncontributory. SOCIAL HISTORY: Nondrinker and nonsmoker. PHYSICAL EXAMINATION: VITAL SIGNS: Blood pressure 107/88, heart rate of 100, temperature of 98, and O2 saturations 100% on room air. GENERAL: The patient lying in bed, appears ill, in no acute distress. HEENT: Pupils equal, round, and reactive to light and accommodation. Extraocular muscles intact. Oral cavity moist and pink. NECK: Supple, mobile, and nontender. Thyroid appreciated. CARDIOVASCULAR: Regular rate and rhythm. S1 and S2. No murmurs, rubs, or gallops appreciated. PULMONARY: Clear to auscultation bilaterally. No rales, rhonchi, or wheezing appreciated. ABDOMEN: Positive bowel sounds. Soft, nontender, and nondistended. EXTREMITIES: Trace pitting edema in bilateral lower extremities. No cyanosis or clubbing noted. NEUROLOGIC: Cranial nerves 2 through 12 intact. No loss of sensory function. SKIN: Radiation mcnamara to the left side of her chest, otherwise skin intact. LABORATORY DATA: Reviewed. IMAGING STUDIES: Reviewed. ASSESSMENT: 1. Dizziness. 2. Weakness. 3. Urinary incontinence. 4. Hyponatremia. 5. Breast cancer with mets to the lung and brain. PLAN: At this point in time, we will admit the patient in observation to the oncology floor to the medicine team. Consults will be placed for Case Management for hospice evaluation as well as a consult to Oncology. The family would like to know about hospice services to see if this is something that they would be interested in. We will also provide the patient with pain medications, normal saline 70 mL an hour, and a regular diet. The patient wishes to be a DNR, likely probability that the patient is going to tolerate any more further aggressive chemotherapy appears to be very low given her clinical history and presentation, may consider if she is a candidate for palliative chemo or palliative radiation. At this point in time, we will provide the patient with pain medications and continue with the home medications as appropriate. Await evaluation by Oncology and Hospice and then we will await family decision to see what they would like to do. Case and plan were discussed with the patient and family at length. Daughter at bedside. at bedside in [place]. Nurse also at bedside. They understood and agreed with this plan. Job ID: [id number]
[2018-10-06 16:07] LABS: Bacteria/HPF 3+ HPF (None Seen); Bilirubin Negative (Negative); Blood, Urine Negative (Negative); Clarity Clear (Clear); Glucose, Urine (Dipstick) Normal (Negative); Leukocyte 75 Leu/uL (Negative); Nitrite 1+ (Negative); Protein, Urine (Dipstick) Negative (Neg-Trace); RBC/HPF 0-3 HPF (0-3); Squamous Epithelial None Seen HPF (0-3); Urobilinogen Normal mg/dL (Less than 2)
[2018-10-06 18:32] VITALS: BMI 27.8
[2018-10-06] MEDS: Ferrous Sulfate 325 MG TAB PO SCH (19:12)
[2018-10-06] MEDS: Sodium Chloride 0.9% 1,000 ML IV SCH (19:12)
[2018-10-06] MEDS ORDERED: Promethazine 25 MG TAB PO PRN (19:31)
[2018-10-06] MEDS: HYDROcodone/Acetaminophen 5/325 mg Tablet PO PRN (20:06)
[2018-10-06] MEDS: Gabapentin 300 MG CAP PO SCH (20:06)
[2018-10-06] MEDS ORDERED: Dexamethasone 4 MG TAB PO SCH (21:00)
[2018-10-07] MEDS: Sodium Chloride 0.9% 1,000 ML IV SCH ×3 (03:40→23:42)
[2018-10-07 06:24] LABS: #Lymphocytes 0.4 thou/uL (1.20-3.40); #Monocytes 0.1 thou/uL (0.11-0.59); #Neutrophils 2.3 thou/uL (1.40-6.50); %Eosinophils 0.4 % (0.0-10.0); %Lymphocytes 13.6 % (21.0-51.0); %Monocytes 2.4 % (0.0-10.0); %Neutrophils 83.6 % (42.0-75.0); Hemoglobin 11.1 g/dL (12.0-16.0); Mean Corpuscular HGB CONC 33.2 g/dL (32.0-36.0); Mean Corpuscular Hemoglobin 32.6 pg (27.0-31.0); Mean Corpuscular Volume 98.1 fL (78.0-98.0); Mean Platelet Volume 7.3 fL (7.4-10.4); Platelet Count 137 thou/uL (130-400); Red Blood Cell (RBC) Count 3.41 mill/uL (4.20-5.40); White Blood Cell (WBC) Count 2.7 thou/uL (4.8-10.8)
[2018-10-07 06:44] LABS: Anion Gap 11 mmol/L (10-20); BUN (Urea Nitrogen) 10 mg/dL (9.8-20.1); Calc. Creatinine Clearance 157 mL/min (70-130); Calcium 8.7 mg/dL (7.8-10.44); Carbon Dioxide 22 mmol/L (22-29); Chloride 104 mmol/L (98-107); Estimated GFR-MDRD Greater than 90; Glucose 108 mg/dL (70-105); Potassium 4.2 mmol/L (3.5-5.1); Sodium 133 mmol/L (136-145)
[2018-10-07] MEDS: HYDROcodone/Acetaminophen 5/325 mg Tablet PO PRN ×4 (07:12→23:42)
[2018-10-07] MEDS: Docusate 100 MG CAP PO SCH (08:48)
[2018-10-07] MEDS: Gabapentin 300 MG CAP PO SCH ×2 (08:48→19:45)
[2018-10-07] MEDS: Ferrous Sulfate 325 MG TAB PO SCH ×2 (08:48→15:51)
[2018-10-07] MEDS: Dexamethasone 10 MG in Sodium Chloride 0.9% 50 ML IVPB SCH ×2 (09:00→11:13)
[2018-10-07] MEDS ORDERED: Milk Of Magnesia 30 ML UDCUP PO PRN (13:16)
[2018-10-07] MEDS ORDERED: Polyethylene Glycol 3350 17 GM Packet PO PRN (13:16)
[2018-10-07] MEDS: Dexamethasone 4 MG TAB PO SCH ×2 (15:49→19:46)
--- NOTE | 2018-10-07 16:33 | CON ---
DATE OF CONSULTATION: REASON FOR CONSULTATION: Breast cancer. HISTORY OF PRESENT ILLNESS: Ms. 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 She underwent neoadjuvant dose dense treatment in September 2017 and then she had a right simple mastectomy with a left modified radical mastectomy. She had 12 of 16 lymph nodes positive at time of surgery. She then underwent treatment with Xeloda and completed radiation to the left breast in June 2018. In July, a CT scan showed progression within the mediastinum. She was started on Tecentriq and Abraxane in August. At the beginning of September, she complained of dizzy spells and near syncope. She was having some blurred vision. MRI of the brain showed 2 metastases. She was started on steroids and completed radiation treatment. She was improving until last week when she began to have diaphoresis, dizziness, and weakness. She had been weaned to a steroid regimen of every other day. She was also complaining of constipation. She did receive treatment on Sunday, October 04. She presented to the emergency room after a fall on Sunday night. Brain CT showed calcified metastatic nodule consistent with treatment. There was, however, vasogenic edema noted. She was given a dose of steroids this morning. She denies complaints other than constipation at this time. PAST MEDICAL HISTORY: 1. Metastatic triple negative breast cancer with chest wall and brain mets. 2. Hypothyroidism. PAST SURGICAL HISTORY: Ultrasound-guided left breast biopsy. ALLERGIES: LATEX. HOME MEDICATIONS: 1. Dexamethasone 4 mg every other day. 2. Colace daily. 3. Gabapentin 600 b.i.d. 4. Hydrocodone p.r.n. 5. Morphine sulfate 30 mg q.12 hours. 6. Protonix 40 daily. 7. Senokot daily. FAMILY HISTORY: She has a significant family history of ovarian, cervical, and breast cancer. SOCIAL HISTORY: has 2 children. Lives with her spouse. No alcohol, tobacco, or illicit drug use. REVIEW OF SYSTEMS: A 10-point review of systems is negative except for noted in HPI. PHYSICAL EXAMINATION: VITAL SIGNS: Temperature is 97.4, pulse is 97, respiratory rate 16, blood pressure is 123/65. She is 94% on 1.5 L nasal cannula. GENERAL: This is a chronically ill-appearing female, in no acute distress. HEENT: Normocephalic and atraumatic. Pupils are equal and reactive to light. NECK: Supple. CV: Regular rate and rhythm. LUNGS: Diminished. ABDOMEN: Soft and nontender. There is no organomegaly. EXTREMITIES: No clubbing or cyanosis. She has left upper extremity edema. SKIN: She has lesions to her left chest wall. HEMATOLOGIC: There is no petechiae or purpura. NEUROLOGIC: Nonfocal. PSYCHIATRIC: She is alert, oriented, and appropriate. PERTINENT LABORATORY DATA AND X-RAYS: Current WBCs are 2.7, hemoglobin 11.1, hematocrit 33.4, platelet count is 137,000, 84% neutrophils, 14% lymphocytes. Sodium 133, potassium 4.2, chloride 104, CO2 is 22, BUN is 10, creatinine 0.43, calcium 8.7. Bilirubin 0.6, AST is 32, ALT is 28, alkaline phosphatase is 82. Troponin is negative. Serum total protein 6.0, albumin 3.6, globulin 2.4. Urine shows 3+ bacteria. Urine culture showed E. coli. ASSESSMENT: 1. Stage IV breast cancer. 2. Cerebral edema secondary to metastatic disease. 3. Possibly urinary tract infection. DISCUSSION: The patient was weaned off her Decadron yet she continues to have cerebral edema. We will increase her steroid to 4 mg t.i.d. Hopefully, she will respond within the next 24 hours. We discussed that she has had 3 cycles of chemo with her last one on Sunday. If she does not improve with steroids and get stronger over the next several weeks, she will likely need hospice. They have agreed to palliative care at home. Appreciate sounds management of the UTI. Thank you for the consult. We will follow her hospital course. Job ID: [id number] [facility]
[2018-10-07] MEDS: cefTRIAXone\\ROCEPHIN 1 GM in Sodium Chloride 0.9% 100 ML IVPB SCH (17:50)
--- NOTE | 2018-10-07 22:16 | PDOC.HOSPP ---
- Subjective Subjective: Met with patient and her family immediately after she met with Eliane. They understand the plan and have not questions presently. Overall, she says she feels a little better. - Objective Vital Signs & Weight: Vital Signs (12 hours) Temp Pulse Resp BP Pulse Ox 10/07/18 19:33 98.0 F 80 16 130/71 94 L 10/07/18 15:31 97.7 F 88 16 113/62 94 L 10/07/18 11:42 97.4 F L 97 16 123/65 94 L Weight Weight 152 lb I&O: 10/06/18 10/07/18 10/08/18 06:59 06:59 06:59 Intake Total 1270 1200 Output Total 2475 1400 Balance -1205 -200 Result Diagrams: 10/07/18 05:58 10/07/18 05:58 ROS - Medication Medications: Active Medications Generic Name Dose Route Start Last Admin Trade Name Freq PRN Reason Stop Dose Admin Hydrocodone Bitart/Acetaminophen 1 tab 10/06/18 19:33 10/07/18 19:43 [place] 5/325 PO 1 tab Q4H PRN Administration Moderate Pain (4-6) Dexamethasone 4 mg 10/07/18 15:00 10/07/18 19:46 Decadron PO 4 mg TID DAVIN Administration Docusate Sodium 100 mg 10/07/18 09:00 10/07/18 08:48 Colace PO 100 mg DAILY DAVIN Administration Ferrous Sulfate 325 mg 10/06/18 17:00 10/07/18 15:51 Feosol PO 325 mg BID-WM DAVIN Administration Gabapentin 600 mg 10/06/18 21:00 10/07/18 19:45 Neurontin PO 600 mg BID DAVIN Administration Sodium Chloride 1,000 mls @ 70 mls/hr 10/06/18 15:30 10/07/18 08:45 Normal Saline 0.9% IV 1,000 mls .[id number] DAVIN Administration Ceftriaxone Sodium 1 gm/ 100 mls @ 200 mls/hr 10/07/18 17:00 10/07/18 17:50 Sodium Chloride IVPB 100 mls Q24HR DAVIN Administration Magnesium Hydroxide 30 ml 10/07/18 13:16 10/07/18 13:35 Milk Of Magnesium PO 30 ml DAILYPRN PRN Administration Constipation Pantoprazole Sodium 40 mg 10/07/18 09:00 08/26/19 08:48 Protonix PO 40 mg DAILY DAVIN Administration Polyethylene Glycol 17 gm 10/07/18 13:16 10/07/18 13:35 Miralax PO 17 gm DAILYPRN PRN Administration Constipation - Exam NAD, ill appearing Heart: RRR, no murmur, no gallops, no rubs, normal peripheral pulses Respiratory: CTAB, no wheezes, no rales, no ronchi, normal chest expansion, no tachypnea, normal percussion Gastrointestinal: soft, non-tender, non-distended, normal bowel sounds, no palpable masses, no hepatomegaly, no splenomegaly, no bruit Skin: normal turgor, no lesions, no rashes Neurological: CN's grossly intact Musculoskeletal: generalized weakness Hosp A/P (1) Acute encephalopathy Code(s): G93.40 - ENCEPHALOPATHY, UNSPECIFIED Status: Acute (2) Breast cancer Status: Acute (3) Brain metastases Code(s): C79.31 - SECONDARY MALIGNANT NEOPLASM OF BRAIN Status: Acute (4) UTI (urinary tract infection) Status: Acute - Plan Will add Rocephin for the UTI. Increasing the decadron per Oncology. Continue hydration.
[2018-10-08] MEDS: HYDROcodone/Acetaminophen 5/325 mg Tablet PO PRN ×5 (03:38→22:05)
[2018-10-08] MEDS: Docusate 100 MG CAP PO SCH (08:11)
[2018-10-08] MEDS: Gabapentin 300 MG CAP PO SCH ×2 (08:11→20:08)
[2018-10-08] MEDS: Dexamethasone 4 MG TAB PO SCH ×3 (08:12→20:08)
[2018-10-08] MEDS: Ferrous Sulfate 325 MG TAB PO SCH ×2 (08:22→17:00)
--- NOTE | 2018-10-08 11:12 | PDOC.HOSPP ---
- Subjective Encounter Date: 10/08/18 Encounter Time: 11:09 Subjective: Feeling a little better today. Eating a little. Still constipated. - Objective Vital Signs & Weight: Vital Signs (12 hours) Temp Pulse Resp BP Pulse Ox 10/08/18 07:59 97.6 F 74 16 139/65 96 10/08/18 04:25 97.6 F 78 16 132/60 95 10/08/18 03:55 93 L 10/08/18 00:00 98.5 F 85 16 122/65 94 L Weight Weight 152 lb I&O: 10/07/18 10/08/18 10/09/18 06:59 06:59 06:59 Intake Total 1270 1680 Output Total 0268 2900 Balance -1205 -1220 Result Diagrams: 10/07/18 05:58 10/07/18 05:58 Hospitalist ROS - Medication Medications: Active Medications Generic Name Dose Route Start Last Admin Trade Name Freq PRN Reason Stop Dose Admin Hydrocodone Bitart/Acetaminophen 1 tab 10/06/18 19:33 10/08/18 08:12 [place] 5/325 PO 1 tab Q4H PRN Administration Moderate Pain (4-6) Dexamethasone 4 mg 10/07/18 15:00 10/08/18 08:12 Decadron PO 4 mg TID DAVIN Administration Docusate Sodium 100 mg 10/07/18 09:00 10/08/18 08:11 Colace PO 100 mg DAILY DAVIN Administration Ferrous Sulfate 325 mg 10/06/18 17:00 10/08/18 08:22 Feosol PO 325 mg BID-WM DAVIN Administration Gabapentin 600 mg 10/06/18 21:00 10/08/18 08:11 Neurontin PO 600 mg BID DAVIN Administration Sodium Chloride 1,000 mls @ 70 mls/hr 10/06/18 15:30 10/07/18 23:42 Normal Saline 0.9% IV 1,000 mls .[id number] DAVIN Administration Ceftriaxone Sodium 1 gm/ 100 mls @ 200 mls/hr 10/07/18 17:00 10/07/18 17:50 Sodium Chloride IVPB 100 mls Q24HR DAVIN Administration Magnesium Hydroxide 30 ml 10/07/18 13:16 10/07/18 13:35 Milk Of Magnesium PO 30 ml DAILYPRN PRN Administration Constipation Pantoprazole Sodium 40 mg 10/07/18 09:00 10/08/18 08:12 Protonix PO 40 mg DAILY DAVIN Administration Polyethylene Glycol 17 gm 10/07/18 13:16 10/07/18 13:35 Miralax PO 17 gm DAILYPRN PRN Administration Constipation - Exam General Appearance: NAD General - other findings: Pale. Generalized puffy edema from steroids. Heart: RRR, no murmur, no gallops, no rubs, normal peripheral pulses Respiratory: CTAB, no wheezes, no rales, no ronchi, normal chest expansion, no tachypnea, normal percussion Gastrointestinal: soft, non-tender, non-distended, normal bowel sounds, no palpable masses, no hepatomegaly, no splenomegaly, no bruit Skin: normal turgor, no lesions, no rashes Neurological: CN's grossly intact, normal sensation to touch, no weakness, no focal deficits, no new deficit Musculoskeletal: generalized weakness Psychiatric: normal affect, normal behavior, A&O x 3 Hosp A/P (1) Acute encephalopathy Code(s): G93.40 - ENCEPHALOPATHY, UNSPECIFIED Status: Acute (2) Breast cancer Status: Acute (3) Brain metastases Code(s): C79.31 - SECONDARY MALIGNANT NEOPLASM OF BRAIN Status: Acute (4) UTI (urinary tract infection) Status: Acute (5) Constipation Code(s): K59.00 - CONSTIPATION, UNSPECIFIED Status: Acute - Plan UCx growing E. coli. Multiple PO options. Will change to po at discharge. Increaed the decadron per Oncology. Continue hydration. PT to assess. She was having some weakness and instability from the cerebral edema/brain mets. Now back on higher doses of Decadron. Wean oxygen off. Possible DC later today. Discussed with CM regarding HH options.
[2018-10-08] MEDS ORDERED: Bisacodyl 10 MG SUPP PR SCH (11:15)
[2018-10-08] MEDS: Magnesium Citrate 300 ML BOT PO SCH ×2 (11:59→12:15)
--- NOTE | 2018-10-08 12:32 | RAD ---
Chest one view HISTORY: Dyspnea. Metastatic disease. Hypoxia. COMPARISON: CT chest 07/09/2018. FINDINGS: Left cardiac margin now partially obscured by left pleural fluid and an elevated left hemid iaphragm extensive parenchymal opacity at the left base. Parenchymal opacity at the medial aspect of the left apex is predominantly linear with a sagittally o riented soft tissue density component measuring 4.2 cm length by 1.1 cm width. Density along the lateral aspect of the left apex is favored to represent loculated fluid. Subtle hazy parenchymal opacity over the right upper lobe. No evidence of pneumothorax. Right subclavian Port-A-Cath in place. Numerous clips over the left axil la. IMPRESSION: Significant worsening in radiographic appearance of chest disease compared to the CT from 07/01/2018. Extensive atelectasis of the left lung with pleural fluid, suspected to be tracking along the lateral aspect of the left upper hemithorax. Interval surgery? Subtle infiltrate over the right upper lobe. Clinical correlation regarding other signs and symptoms of right upper lobe pneumonitis is required. CT chest may be helpful for better characterization.
[2018-10-08] MEDS: Sodium Chloride 0.9% 1,000 ML IV SCH (13:45)
--- NOTE | 2018-10-08 14:50 | PDOC.MOPN ---
Interval History: patient fatigued but showered today. - Vital Signs Vital Signs: Vital Signs (12 hours) Temp Pulse Resp BP Pulse Ox 10/08/18 12:51 98.0 F 80 16 132/68 97 10/08/18 07:59 97.6 F 74 16 139/65 96 10/08/18 04:25 97.6 F 78 16 132/60 95 10/08/18 03:55 93 L Weight Admit Weight 152 lb Weight 152 lb - Physical Exam General: Alert, Oriented x3, No acute distress HEENT: Atraumatic, PERRLA, EOMI, Mucous membr. moist/pink Lungs: Clear to auscultation Cardiovascular: Regular rate, Normal S1, Normal S2, No murmurs, Gallops, Rubs Abdomen: Normal bowel sounds Extremities: Other (lue edema) Neurological: Normal speech Psych/Mental Status: Mental status NL - Labs Result Diagrams: 10/07/18 05:58 10/07/18 05:58 Status: lab reviewed by me A/P - Problem (1) Breast cancer Current Visit: No Status: Acute - Plan Plan: Patient completed 3 cycles of Tecentriq/Abraxane has decided to go home with hospice continue dex tid continue pain management
[2018-10-08] MEDS: cefTRIAXone\\ROCEPHIN 1 GM in Sodium Chloride 0.9% 100 ML IVPB SCH (16:10)
[2018-10-09] MEDS: HYDROcodone/Acetaminophen 5/325 mg Tablet PO PRN ×4 (02:01→17:35)
[2018-10-09] MEDS: Sodium Chloride 0.9% 1,000 ML IV SCH (02:03)
[2018-10-09 07:26] VITALS: BP 128/64; TEMP 97.8
[2018-10-09] MEDS: Morphine 2 MG/ML SYRINGE IVP PRN ×3 (08:11→16:50)
[2018-10-09] MEDS: Ferrous Sulfate 325 MG TAB PO SCH ×2 (08:14→17:41)
[2018-10-09] MEDS: Gabapentin 300 MG CAP PO SCH (08:14)
[2018-10-09] MEDS: Dexamethasone 4 MG TAB PO SCH ×2 (08:14→14:09)
[2018-10-09] MEDS: Docusate 100 MG CAP PO SCH (08:15)
[2018-10-09] MEDS ORDERED: Morphine 2 MG/ML SYRINGE IVP SCH (08:35)
[2018-10-09] MEDS: Lidocaine 2% Jelly 5 ML TUBE TOP SCH ×2 (09:14→15:15)
--- NOTE | 2018-10-09 15:29 | PDOC.EVN ---
Event Note - Event Note Event Note: Discharge summary dictated. #[id number]
--- NOTE | 2018-10-09 16:09 | DIS ---
DATE OF ADMISSION: 10/06/2018 DATE OF DISCHARGE: 10/09/2018 PRIMARY CARE PHYSICIAN: Jacklyn Conway DO. DISCHARGE DIAGNOSES: 1. Acute encephalopathy due to urinary tract infection. 2. Urinary tract infection. 3. Breast cancer. 4. Brain metastasis. 5. Constipation. 6. Physical deconditioning. 7. Left chest radiation burn. 8. Hyponatremia. CONSULTS: 1. Hematology and Oncology. 2. Palliative Care Medicine. HOSPITAL COURSE: A 58-year-old female with known history of metastatic breast cancer with metastasis to the bone and brain, admitted due to acute worsening of dizziness as well as blurry vision and urinary incontinence as well as generalized weakness. The patient also complained of severe pain at the site of radiation mcnamara on the left side of chest. There was also some degree of mild confusion. The patient also had constipation. Of note, the patient was on chronic narcotic treatment due to pain. Impression of acute encephalopathy from urinary tract infection with possible contribution from narcotic use and brain metastasis was made. She was treated with IV antibiotics for urinary tract infection as well as IV fluid and other supportive care. Hematology Oncology consult was obtained and hospice was recommended given the patient is not doing well despite aggressive treatment. Following further discussion with the family, they elected to go home on home hospice and the patient was subsequently discharged home. The patient received stool softener with improvement in constipation. Hyponatremia noticed on presentation, improved marginally. PHYSICAL EXAMINATION: VITAL SIGNS: Temperature 97.8, pulse 65, respiratory rate 16, SpO2 of 99% on nasal cannula oxygen, blood pressure is 128/64. GENERAL: Middle-aged female, in mild painful distress. Afebrile. Anicteric. Acyanotic. HEENT: Normocephalic and atraumatic. Oral mucosa is moist. CARDIOVASCULAR: Regular rhythm and rate with normal. heart sounds one and two. CHEST/RESPIRATORY: Fair air entry bilaterally with no obvious crackle or rhonchi or use of accessory muscles. Left anterior chest radiation burn with some erythema and some minimal skin breakdown noted. GI: Full, soft, nontender, nondistended with normal bowel sounds. EXTREMITIES: Grossly normal looking, atraumatic, with no edema or erythema. TRACK BROOM OPERATOR: Conscious, alert, oriented x3 with appropriate mental status. Cranial nerves 2 through 12 are grossly intact. DISCHARGE DISPOSITION: Home with home hospice. DISCHARGE CONDITION: Guarded, but hemodynamically stable. DISCHARGE MEDICATIONS: See discharge med rec. FOLLOWUP: With PCP and hospice service team. TIME SPENT: Discharge took more than 34 minutes. Job ID: [id number]
[2018-10-09] MEDS: cefTRIAXone\\ROCEPHIN 1 GM in Sodium Chloride 0.9% 100 ML IVPB SCH (17:41)
== END 2018-10-09 18:00 | disposition hospice, home (50) | DRG 689 ==
LOC: ERS 12:00 → ONC 15:09 → OBSVTOIN 15:09
PROVIDERS: ADMIT Internal Medicine; ATTEND Internal Medicine
DX: N39.0 Urinary tract infection, site not specified (principal); J96.01 Acute respiratory failure with hypoxia; G93.6 Cerebral edema; G92 Toxic encephalopathy; C79.31 Secondary malignant neoplasm of brain; C79.51 Secondary malignant neoplasm of bone; E78.1 Pure hyperglyceridemia; C50.919 Malignant neoplasm of unspecified site of unspecified female breast; K59.00 Constipation, unspecified; E03.9 Hypothyroidism, unspecified; T21.01XA Burn of unspecified degree of chest wall, initial encounter; T40.605A Adverse effect of unspecified narcotics, initial encounter; Y84.2 Radiological procedure and radiotherapy as the cause of abnormal reaction of the patient, or of later complication, without mention of misadventure at the time of the procedure; Z79.891 Long term (current) use of opiate analgesic
CPT/HCPCS: 36415; 70450; 71045; 80048; 80053; 81003; 81015; 82248; 83605; 83615; 84100; 84443; 84484; 84550; 85025; 87077; 87086; 87186; 93005; J0696; J1100; J2270; J3490; J8540; J8597